=== PATIENT | male | born 1955 | race Caucasian/White ===

== ENCOUNTER 2016-06-26 15:14 | Emergency (ER) | payer OTHER ==
[2016-06-26 15:34] VITALS: BP 161/83; PULSE 82; RESP 18; TEMP 98.2
[2016-06-26] MEDS ORDERED: GELATIN SPONGE,ABSORB (SMALL) 1 EACH SPONGE TOPICAL STA (15:55)
--- NOTE | 2016-06-26 16:15 | ED ---
General Adult HPI - General Chief complaint: Wound/Laceration Stated complaint: Lac/Finger Time Seen by Provider: 06/26/16 15:51 Source: patient, RN notes reviewed Mode of arrival: ambulatory Limitations: no limitations - History of Present Illness Initial comments: Patient 60-year-old male who presents emergency room today with chief complaint of laceration to the left index finger that occurred approximately an hour ago. He does admit that he was at home using a utility knife when it broke sleeping causing a laceration to the posterior aspect of the left index. Proximal portion. Patient states tetanus is up-to-date. He does admit that he is on blood thinners. Patient denies any other complaints or symptoms. Patient denies any recent fever, chills, shortness of breath, chest pain, back pain, abdominal pain, nausea or vomiting, numbness or tingling, dysuria or hematuria, constipation or diarrhea, headaches or visual changes, or any other complaints. - Related Data Home Medications Medication Instructions Recorded Confirmed Atorvastatin [Lipitor] 20 mg PO DAILY 06/26/16 06/26/16 Clopidogrel [Plavix] 5 mg PO DAILY 06/26/16 06/26/16 Rivaroxaban [Xarelto] 5 mg PO DAILY 06/26/16 06/26/16 Previous Rx's Medication Instructions Recorded Cephalexin [Keflex] 500 mg PO Q12HR 7 Days 06/26/16 Allergies Allergy/AdvReac Type Severity Reaction Status Date / Time No Known Allergies Allergy Verified 06/26/16 15:35 Review of Systems ROS Statement: Those systems with pertinent positive or pertinent negative responses have been documented in the HPI. ROS Other: All systems not noted in ROS Statement are negative. Past Medical History Past Medical History: Atrial Fibrillation, Deep Vein Thrombosis (DVT) Additional Past Medical History / Comment(s): colorectal cancer, scarring pulmonary veins. History of Any Multi-Drug Resistant Organisms: None Reported Additional Past Surgical History / Comment(s): ablation, stents, heart cath, stent LAD Past Psychological History: No Psychological Hx Reported Smoking Status: Never smoker Past Alcohol Use History: None Reported, Occasional Past Drug Use History: None Reported General Exam - General Exam Comments Initial Comments: General: The patient is awake and alert, in no distress, and does not appear acutely ill. Neck: The neck is supple, there is no tenderness or JVD. Cardiovascular: There is a regular rate and rhythm. No murmur, rub or gallop is appreciated. Respiratory: Lungs are clear to auscultation, respirations are non-labored, breath sounds are equal. No wheezes, stridor, rales, or rhonchi. Musculoskeletal: Full range motion. Sensation intact. Pulses equal bilaterally 2+. Strength 5/5. Cap refill less than 2 seconds. Neurological: A&O x 3. CN II-XII intact, There are no obvious motor or sensory deficits. Coordination appears grossly intact. Speech is normal. Skin: Avulsion type laceration to the posterior aspect of the left second digit proximal. Mild venous oozing. Psychiatric: Normal mood and affect. Limitations: no limitations Course Vital Signs 06/26/16 15:27 Temperature 98.2 F Pulse Rate 82 Respiratory 18 Rate Blood Pressure 161/83 O2 Sat by Pulse 95 Oximetry Procedures - Procedures Initial comment: Patient's laceration cleaned here in the emergency room. Laceration site which piece of Gelfoam. Nonstick dressing placed over top. Medical Decision Making - Medical Decision Making Patient denies follow-up with orthopedic hand specialist. Will be placed on antibiotic prophylactic. Advised return for any other concerns. Disposition Clinical Impression: Laceration Disposition: HOME SELF-CARE Condition: Good Instructions: Laceration (ED) Additional Instructions: Please allow the Gelfoam to fall off on its own. Please change dressing twice daily. Please use antibiotic as prescribed. Please follow-up with family doctor/orthopedics in the next 2 days of symptoms have not improved. Please return to emergency room if the symptoms increase or worsen or for any other concerns. Prescriptions: Cephalexin [Keflex] 500 mg PO Q12HR 7 Days Time of Disposition: 16:07
== END 2016-06-26 16:26 | disposition home or self-care (01) ==
LOC: EC 15:14
DX: S61.211A Laceration without foreign body of left index finger without damage to nail, initial encounter (principal); I48.91 Unspecified atrial fibrillation; Z79.01 Long term (current) use of anticoagulants; Z79.02 Long term (current) use of antithrombotics/antiplatelets; Z79.899 Other long term (current) drug therapy; Z86.718 Personal history of other venous thrombosis and embolism; Z95.5 Presence of coronary angioplasty implant and graft; W26.0XXA Contact with knife, initial encounter; Y92.009 Unspecified place in unspecified non-institutional (private) residence as the place of occurrence of the external cause
CPT/HCPCS: 99282

== ENCOUNTER 2018-03-27 21:23 | Emergency (ER) | payer OTHER ==
[2018-03-27 21:40] VITALS: RESP 18
[2018-03-27 22:00] LABS: INR 1.1 (<1.2); Partial Thromboplastin Time 24.5 sec (22.0-30.0); Prothrombin Time 10.9 sec (9.0-12.0)
[2018-03-27 22:04] LABS: ALT 28 U/L (21-72); AST 31 U/L (17-59); Alcohol <10 mg/dL; Alkaline Phosphatase 81 U/L (38-126); Anion Gap 9 mmol/L; Blood Urea Nitrogen 24 mg/dL (9-20); Calcium 9.3 mg/dL (8.4-10.2); Carbon Dioxide 28 mmol/L (22-30); Chloride 101 mmol/L (98-107); Glucose 142 mg/dL (74-99); Potassium 3.3 mmol/L (3.5-5.1); Sodium 138 mmol/L (137-145); Total Bilirubin 0.4 mg/dL (0.2-1.3); Total Protein 7.1 g/dL (6.3-8.2)
[2018-03-27 22:08] LABS: HCT 43.4 % (39.0-53.0); MCH 29.8 pg (25.0-35.0); MCHC 32.4 g/dL (31.0-37.0); Mean Platelet Volume 7.4; Platelet Count 235 k/uL (150-450); RBC 4.71 m/uL (4.30-5.90); RDW 13.5 % (11.5-15.5); WBC 8.4 k/uL (3.8-10.6)
--- NOTE | 2018-03-27 22:11 | XR ---
EXAMINATION TYPE: XR cervical spine 1V DATE OF EXAM: 03/27/2018 COMPARISON: NONE HISTORY: Neck pain TECHNIQUE: 2 views FINDINGS: 2 lateral views were obtained. There is mild straightening of the cervical spine. Posterior elements are intact. There is degenerative disc space From C4 to C7. I see no fracture. Cervical basilar relationships is normal. IMPRESSION: Spondylotic changes in the cervical spine. No fracture.
--- NOTE | 2018-03-27 22:14 | XR ---
EXAMINATION TYPE: XR chest 1V portable DATE OF EXAM: 03/27/2018 COMPARISON: NONE HISTORY: Pain TECHNIQUE: Single frontal view of the chest is obtained. FINDINGS: Heart and mediastinum are normal. Lungs are clear. Diaphragm is normal. There is no sign o f pleural effusion or pneumothorax. There are chest leads. IMPRESSION: Normal chest
[2018-03-27 22:15] LABS: Creatine Kinase 242 U/L (55-170)
--- NOTE | 2018-03-27 22:15 | XR ---
EXAMINATION TYPE: XR shoulder complete RT DATE OF EXAM: 03/27/2018 COMPARISON: NONE HISTORY: Pain TECHNIQUE: 3 views FINDINGS: I see no fracture nor dislocation. Glenohumeral joint is anatomic. There is spurring at the AC joint. Right upper ribs appear intact. IMPRESSION: Negative right shoulder exam. Previous right shoulder surgery.
--- NOTE | 2018-03-27 22:16 | XR ---
EXAMINATION TYPE: XR pelvis AP view DATE OF EXAM: 03/27/2018 COMPARISON: NONE HISTORY: Pain TECHNIQUE: Single view FINDINGS: Pelvic ring is intact. Proximal femurs and hip joints are intact. Sacroiliac joints appear normal. IMPRESSION: Normal pelvis
--- NOTE | 2018-03-27 22:18 | XR ---
EXAMINATION TYPE: XR tibia fibula RT DATE OF EXAM: 03/27/2018 COMPARISON: NONE HISTORY: Knee pain TECHNIQUE: 4 views FINDINGS: The tibia and fibula appear intact. I see no fracture nor dislocation. There is an Achilles calcaneal spur. Knee joint appears intact. There is mild spurring on the superior patella. IMPRESSION: No acute abnormality of the right tibia and fibula.
--- NOTE | 2018-03-27 22:19 | XR ---
EXAMINATION TYPE: XR femur LT DATE OF EXAM: 03/27/2018 COMPARISON: NONE HISTORY: Leg pain TECHNIQUE: 4 views FINDINGS: I see no fracture nor dislocation. Hip joint and knee joint appear intact. There are no pat hologic calcifications. IMPRESSION: Negative left femur exam.
[2018-03-27 22:26] LABS: Band Neutrophils % 1 %; Basophils # (M) 0.08 k/uL (0-0.2); Eosinophils # (M) 0.42 k/uL (0-0.7); Lymphocytes # (M) 3.02 k/uL (1.0-4.8); Monocytes # (M) 0.17 k/uL (0-1.0); Neutrophils % (M) 55 %; Nucleated Red Blood Cells 0 /100 WBC (0-0); Total Cells Counted 100
[2018-03-27 22:28] LABS: Creatine Kinase MB 2.9 ng/mL (0.0-2.4); Troponin I <0.012 ng/mL (0.000-0.034)
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
[2018-03-27 23:13] LABS: Amphetamine Screen,Urine Not Detected (NotDetected); Barbiturate Screen,Urine Not Detected (NotDetected); Benzodiazepines Screen,Urine Not Detected (NotDetected); Cocaine Screen,Urine Not Detected (NotDetected); Methadone Screen, Urine Not Detected (NotDetected); Opiate Screen,Urine Detected (NotDetected); Oxycodone Screen, Urine Not Detected (NotDetected); Phencyclidine Screen,Urine Not Detected (NotDetected); Tricyclic Antidepressant,Urine Not Detected (NotDetected); Urn Cannabinoid Scrn Not Detected (NotDetected)
[2018-03-27] MEDS ORDERED: HYDROmorphone 1 MG/ML 1 ML SYRINGE IVP STA (23:14)
[2018-03-27 23:18] LABS: Appearance,Urine Clear (Clear); Bilirubin,Urine Negative (Negative); Blood,Urine Negative (Negative); Color,Urine Light Yellow; Glucose,Urine (UA) Negative (Negative); Ketones,Urine Negative (Negative); Leukocyte Esterase,Urine Negative (Negative); Nitrite,Urine Negative (Negative); PH, Urine 5.5 (5.0-8.0); Protein,Urine Negative (Negative); Specific Gravity,Urine 1.017 (1.001-1.035); Urobilinogen,Urine <2.0 mg/dL (<2.0)
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
[2018-03-27] MEDS ORDERED: LIDOCAINE 1% INJ 10MG/ML (20 ML MDV) SQ ONE (23:48)
[2018-03-28 01:02] VITALS: BP 129/82; PULSE 82; TEMP 98.4
== END 2018-03-28 01:15 | disposition home or self-care (01) ==
LOC: EC 21:23
DX: S01.112A Laceration without foreign body of left eyelid and periocular area, initial encounter (principal); S70.12XA Contusion of left thigh, initial encounter; S80.812A Abrasion, left lower leg, initial encounter; S80.811A Abrasion, right lower leg, initial encounter; M25.511 Pain in right shoulder; I48.91 Unspecified atrial fibrillation; Z86.718 Personal history of other venous thrombosis and embolism; Z85.89 Personal history of malignant neoplasm of other organs and systems; Z79.01 Long term (current) use of anticoagulants; Z79.899 Other long term (current) drug therapy; Z88.1 Allergy status to other antibiotic agents; Z95.5 Presence of coronary angioplasty implant and graft; V47.5XXA Car driver injured in collision with fixed or stationary object in traffic accident, initial encounter; Y92.410 Unspecified street and highway as the place of occurrence of the external cause
CPT/HCPCS: 36415; 93005; 86900; 86901; 80053; 82550; 82553; 84484; 85025; 85610; 85730; 86850; 81003; 80306; 80320; 72020; 72170; 73552; 73030; 73590; 71045; 70450; 99285; 12011; 96374; J2001; J1170

== ENCOUNTER 2018-06-29 15:47 | Observation (INO) | payer OTHER ==
[2018-06-29] MEDS ORDERED: ceFAZolin 1,000 MG in DEXTROSE/WATER 1 50ML.BAG IVPB STA ×2 (16:13→22:12)
[2018-06-29] MEDS ORDERED: DIPH,PERTUS(ACELL)TETVAC-LF 0.5 ML VIAL IM ONE (16:13)
[2018-06-29] MEDS ORDERED: MORPHINE SULFATE 4 MG/ML SYRINGE IVP STA ×2 (16:18→16:52)
[2018-06-29 16:24] LABS: Basophils # (A) 0.1 k/uL (0-0.2); Basophils % (A) 1 %; Eosinophils # (A) 0.3 k/uL (0-0.7); Eosinophils % (A) 3 %; HCT 47.9 % (39.0-53.0); HGB 15.5 gm/dL (13.0-17.5); Lymphocytes # (A) 3.1 k/uL (1.0-4.8); Lymphocytes % (A) 31 %; MCH 27.5 pg (25.0-35.0); MCHC 32.3 g/dL (31.0-37.0); MCV 85.1 fL (80.0-100.0); Mean Platelet Volume 5.9; Monocytes # (A) 0.8 k/uL (0-1.0); Monocytes % (A) 8 %; Neutrophils # (A) 5.6 k/uL (1.3-7.7); Neutrophils % (A) 56 %; Platelet Count 294 k/uL (150-450); RBC 5.63 m/uL (4.30-5.90); RDW 14.5 % (11.5-15.5)
--- NOTE | 2018-06-29 16:29 | ED ---
General Adult HPI - General Chief complaint: Trauma Stated complaint: leg lac Time Seen by Provider: 06/29/18 16:00 Source: patient, RN notes reviewed, old records reviewed Mode of arrival: wheelchair Limitations: no limitations - History of Present Illness Initial comments: 62-year-old male presents for evaluation of right lower extremity injury. Patient was using a circular saw cutting a countertop, did lose control of the saw and it struck his right anterior myers and calf. Patient immediately applied pressure and presented to the hospital for evaluation. He's having some numbness in his foot. His been able to ambulate. He states a significant amount of blood was lost on scene. He is currently on Plavix and Xarelto. No other injury reported - Related Data Home Medications Medication Instructions Recorded Confirmed Chlorthalidone [Hygroton] 25 mg PO DAILY 03/27/18 06/29/18 Cholecalciferol [Vitamin D3] 1,000 unit PO DAILY 03/27/18 06/29/18 Clopidogrel [Plavix] 75 mg PO DAILY 03/27/18 06/29/18 Ezetimibe [Zetia] 10 mg PO DAILY 03/27/18 06/29/18 Glucosamine Sulfate 1,500 mg PO QID 03/27/18 06/29/18 Omeprazole 20 mg PO DAILY 03/27/18 06/29/18 Potassium 99 mg PO BID 03/27/18 06/29/18 Rivaroxaban [Xarelto] 20 mg PO DAILY 03/27/18 06/29/18 Turmeric Root Extract [Turmeric] 500 mg PO DAILY 03/27/18 06/29/18 Vit C/E/Zn/Coppr/Lutein/Zeaxan 1 cap PO BID 03/27/18 06/29/18 [Preservision Areds 2 Softgel] Vitamin E 1,000 unit PO BID 03/27/18 06/29/18 Metoprolol Tartrate [Lopressor] 25 mg PO DAILY 06/29/18 06/29/18 Allergies Allergy/AdvReac Type Severity Reaction Status Date / Time demeclocycline Allergy Unknown Verified 06/29/18 16:45 [From Declomycin] Review of Systems ROS Statement: Those systems with pertinent positive or pertinent negative responses have been documented in the HPI. ROS Other: All systems not noted in ROS Statement are negative. Past Medical History Past Medical History: Atrial Fibrillation, Deep Vein Thrombosis (DVT) Additional Past Medical History / Comment(s): colorectal cancer, scarring pulmonary veins. History of Any Multi-Drug Resistant Organisms: None Reported Additional Past Surgical History / Comment(s): ablation, stents, heart cath, stent LAD Past Psychological History: No Psychological Hx Reported Smoking Status: Never smoker Past Alcohol Use History: None Reported, Occasional Past Drug Use History: None Reported General Exam Limitations: no limitations General appearance: alert, in no apparent distress Head exam: Present: atraumatic, normocephalic Eye exam: Present: normal appearance, PERRL, EOMI ENT exam: Present: normal exam Neck exam: Present: normal inspection. Absent: tenderness, meningismus Respiratory exam: Present: normal lung sounds bilaterally. Absent: respiratory distress Cardiovascular Exam: Present: normal rhythm, tachycardia GI/Abdominal exam: Present: soft. Absent: distended, tenderness, guarding Extremities exam: Present: other (Bilateral extremity, significant soft tissue injury, anterior medial lower leg. Muscle bed injury, significant hemorrhage, no arterial pulsatile bleed. approximately 15 cm, irregular) Course Vital Signs 06/29/18 06/29/18 15:52 16:17 Temperature 98 F Pulse Rate 122 H 122 H Respiratory 20 16 Rate Blood Pressure 195/91 154/105 O2 Sat by Pulse 97 97 Oximetry - Reevaluation(s) Reevaluation #1: 06/29/18 16:10 case discussed with trauma surgery, Dr. Hargrove, recommend orthopedic surgery evaluation. 06/29/18 16:03 Wound evaluated, copiously irrigated with normal saline. Patient is started on IV antibiotics, tetanus updated. Medical Decision Making - Medical Decision Making 62-year-old male with injury to the left lower leg. Significant soft tissue injury. Also involvement, significant hemorrhage with no pulsatile bleeding. Patient has normal posterior tibial pulse, normal cap refill, DP pulse on either lower extremity, this may be patient's baseline. X-rays obtained, shows soft tissue injury, no bony abnormality. Patient's tetanus is updated, given IV antibiotics. Case discussed with Dr. Cameron, will take the patient for washout and closure. - Lab Data Result diagrams: 06/29/18 16:08 06/29/18 16:08 Lab Results 06/29/18 06/29/18 06/29/18 Range/Units 16:08 16:08 16:08 WBC 10.0 (3.8-10.6) k/uL RBC 5.63 (4.30-5.90) m/uL Hgb 15.5 (13.0-17.5) gm/dL Hct 47.9 (39.0-53.0) % MCV 85.1 (80.0-100.0) fL MCH 27.5 (25.0-35.0) pg MCHC 32.3 (31.0-37.0) g/dL RDW 14.5 (11.5-15.5) % Plt Count 294 (150-450) k/uL Neutrophils % 56 % Lymphocytes % 31 % Monocytes % 8 % Eosinophils % 3 % Basophils % 1 % Neutrophils # 5.6 (1.3-7.7) k/uL Lymphocytes # 3.1 (1.0-4.8) k/uL Monocytes # 0.8 (0-1.0) k/uL Eosinophils # 0.3 (0-0.7) k/uL Basophils # 0.1 (0-0.2) k/uL PT 10.4 (9.0-12.0) sec INR 1.0 (<1.2) APTT 22.2 (22.0-30.0) sec Sodium 140 (137-145) mmol/L Potassium 3.2 L (3.5-5.1) mmol/L Chloride 100 (98-107) mmol/L Carbon Dioxide 27 (22-30) mmol/L Anion Gap 13 mmol/L BUN 23 H (9-20) mg/dL Creatinine 1.43 H (0.66-1.25) mg/dL Est GFR (CKD-EPI)AfAm 60 (>60 ml/min/1.73 sqM) Est GFR (CKD-EPI)NonAf 52 (>60 ml/min/1.73 sqM) Glucose 105 H (74-99) mg/dL Calcium 9.5 (8.4-10.2) mg/dL Total Bilirubin 0.8 (0.2-1.3) mg/dL AST 26 (17-59) U/L ALT 29 (21-72) U/L Alkaline Phosphatase 92 (38-126) U/L Total Protein 7.7 (6.3-8.2) g/dL Albumin 4.6 (3.5-5.0) g/dL Serum Alcohol <10 mg/dL Critical Care Time Critical Care Time: Yes Total Critical Care Time: 35 Disposition Clinical Impression: Laceration of muscle, Laceration of calf Disposition: ADMITTED IP TO THIS HOSP Condition: Stable Is patient prescribed a controlled substance at d/c from ED?: No Referrals: Hernan Cheatham MD [Primary Care Provider] - 1-2 days Time of Disposition: 16:56 Decision to Admit Reason: Admit from EC Decision Date: 06/29/18 Decision Time: 16:56
[2018-06-29 16:34] LABS: ALT 29 U/L (21-72); AST 26 U/L (17-59); Albumin 4.6 g/dL (3.5-5.0); Alcohol <10 mg/dL; Alkaline Phosphatase 92 U/L (38-126); Anion Gap 13 mmol/L; Blood Urea Nitrogen 23 mg/dL (9-20); Calcium 9.5 mg/dL (8.4-10.2); Carbon Dioxide 27 mmol/L (22-30); Chloride 100 mmol/L (98-107); Glucose 105 mg/dL (74-99); Potassium 3.2 mmol/L (3.5-5.1); Sodium 140 mmol/L (137-145); Total Bilirubin 0.8 mg/dL (0.2-1.3); Total Protein 7.7 g/dL (6.3-8.2)
[2018-06-29 16:40] LABS: Partial Thromboplastin Time 22.2 sec (22.0-30.0); Prothrombin Time 10.4 sec (9.0-12.0)
--- NOTE | 2018-06-29 16:49 | XR ---
EXAMINATION TYPE: XR tibia fibula RT DATE OF EXAM: 06/29/2018 COMPARISON: 03/27/2018 HISTORY: Laceration TECHNIQUE: 2 views FINDINGS: There are areas bandages obscuring the proximal tibia. I see no fracture nor dislocation. T here is some soft tissue deformity anteriorly. IMPRESSION: No fracture. No foreign body seen. Soft tissue swelling and probable laceration deformity of the medial and anterior tibia.
[2018-06-29] MEDS ORDERED: SODIUM CHLORIDE 0.9% 1,000 ML IV SCH (17:00)
[2018-06-29] MEDS ORDERED: NALOXONE 0.4 MG/ML 1 ML VIAL IV PRN (17:08)
[2018-06-29] MEDS: POTASSIUM CHLORIDE 10 MEQ in WATER FOR INJECTION 1 100ML.BAG IVPB SCH ×6 (17:09→21:45)
[2018-06-29] MEDS ORDERED: SODIUM CHLORIDE 0.9% 500 ML 500 ML IV ONE (17:15)
[2018-06-29] MEDS ORDERED: ONDANSETRON 4 MG/2 ML VIAL IVP STA (17:15)
[2018-06-29] MEDS ORDERED: SODIUM CHLORIDE 0.9% 1,000 ML IV ONE ×2 (17:45)
--- NOTE | 2018-06-29 18:19 | P.HPOR ---
History of Present Illness H&P Date: 06/29/18 Chief Complaint: Right leg laceration Mr. Echevarria is a pleasant 62-year-old male who sustained an injury to his right leg earlier today while working with a circular saw at home. He states he was cutting a countertop with the blade guard retracted. The saw slipped and cut his right leg. He was brought to the emergency department at [facility] and the orthopedics service was consulted. He denies previous history of injury to the leg but did have recent arthroscopic surgery on the right knee the past few weeks. He localizes the pain to the right leg and denies other associated injuries. He admits to some tingling sensations on the medial aspect of the foot and leg distal to the wound. His past medical history is significant for colon cancer, DVT and A. fib for which he takes Xarelto and Plavix. He denies history of diabetes or smoking. He normally endplates without the use of assistive devices. Past Medical History Past Medical History: Atrial Fibrillation, Deep Vein Thrombosis (DVT) Additional Past Medical History / Comment(s): colorectal cancer, scarring pulmonary veins. History of Any Multi-Drug Resistant Organisms: None Reported Additional Past Surgical History / Comment(s): ablation, stents, heart cath, stent LAD Past Psychological History: No Psychological Hx Reported Smoking Status: Never smoker Past Alcohol Use History: None Reported, Occasional Past Drug Use History: None Reported Medications and Allergies Home Medications Medication Instructions Recorded Confirmed Type Chlorthalidone [Hygroton] 25 mg PO DAILY 03/27/18 06/29/18 History Cholecalciferol [Vitamin D3] 1,000 unit PO DAILY 03/27/18 06/29/18 History Clopidogrel [Plavix] 75 mg PO DAILY 03/27/18 06/29/18 History Ezetimibe [Zetia] 10 mg PO DAILY 03/27/18 06/29/18 History Glucosamine Sulfate 1,500 mg PO QID 03/27/18 06/29/18 History Omeprazole 20 mg PO DAILY 03/27/18 06/29/18 History Potassium 99 mg PO BID 03/27/18 06/29/18 History Rivaroxaban [Xarelto] 20 mg PO DAILY 03/27/18 06/29/18 History Turmeric Root Extract [Turmeric] 500 mg PO DAILY 03/27/18 06/29/18 History Vit C/E/Zn/Coppr/Lutein/Zeaxan 1 cap PO BID 03/27/18 06/29/18 History [Preservision Areds 2 Softgel] Vitamin E 1,000 unit PO BID 03/27/18 06/29/18 History Metoprolol Tartrate [Lopressor] 25 mg PO DAILY 06/29/18 06/29/18 History Allergies Allergy/AdvReac Type Severity Reaction Status Date / Time demeclocycline Allergy Unknown Verified 06/29/18 16:45 [From Declomycin] Physical Examination Right leg: There is a large curved traumatic laceration on the anteromedial aspect of the proximal third of right leg. This measures approximately 20 cm in overall length and 8 cm in width. The wound edges are clean and there is no significant maceration to the skin edges. No active arterial bleeding is seen but steady venous oozing is present. There is visible laceration to the medial head of the gastroc muscle belly. No gross contamination or foreign debris is appreciated; however, the wound appears fairly deep and the full extent is not able to be adequately visualized. Light touch sensation is intact circumferentially around the leg however he reports mild tingling and paresthesias on the medial aspect of the leg and foot distal to the wound. He has intact gross motor function with active dorsiflexion, plantarflexion, inversion and eversion of the ankle as well as EHL and FHL function. The foot is slightly cool but similar to the contralateral foot. There is good capillary refill. The tibialis posterior pulse is strong and 3+. The dorsalis pedis is very faintly palpable on both feet. Results - Labs Labs: Abnormal Lab Results - Last 24 Hours (Table) 06/29/18 Range/Units 16:08 Potassium 3.2 L (3.5-5.1) mmol/L BUN 23 H (9-20) mg/dL Creatinine 1.43 H (0.66-1.25) mg/dL Glucose 105 H (74-99) mg/dL H & H 06/29/18 Range/Units 16:08 Hgb 15.5 (13.0-17.5) gm/dL Hct 47.9 (39.0-53.0) % Coagulation 06/29/18 Range/Units 16:08 INR 1.0 (<1.2) Result Diagrams: 06/29/18 16:08 06/29/18 16:08 Assessment and Plan Assessment: Traumatic open wound of the right leg with muscle injury secondary to contact with a power saw (1) Contact with powered saw as cause of accidental injury Current Visit: Yes Status: Acute Code(s): W31.2XXA - CONTACT W POWERED [employer]ACHINES, INIT SNOMED Code(s): 298515368 (2) Traumatic open wound of right lower leg Current Visit: Yes Status: Acute Code(s): S81.801A - UNSPECIFIED OPEN WOUND , RIGHT LOWER LEG, INITIAL ENCOUNTER SNOMED Code(s): 408987844 Plan: I discussed the clinical findings with Mr. Ortiz and his . Based on the mechanism of injury and the extent of the wound, I recommended formal surgical exploration of the right leg wound with irrigation and debridement and wound closure. Risks and benefits were discussed, including (but not limited to) the risks of infection, bleeding, injury to tendons or neurovascular structures, hematoma, compartment syndrome and possible need for additional surgery. Questions were invited and answered. The patient expressed understanding and wished to proceed with surgery. The wound was wrapped with ABDs, Kerlix and Coban. Antibiotics have been administered. The patient will be kept NPO and we will proceed with surgical debridement.
[2018-06-29] MEDS ORDERED: LIDOCAINE 1% INJ 10MG/ML (20 ML MDV) ONE (19:07)
[2018-06-29] MEDS ORDERED: MIDAZOLAM 2 MG/2 ML VIAL ONE (19:07)
[2018-06-29] MEDS ORDERED: PROPOFOL 10 MG/ML 20 ML VIAL IV ONE (19:07)
[2018-06-29] MEDS ORDERED: SUCCINYLCHOLINE CHLORIDE 100 MG/5 ML SYR IV ONE (19:07)
[2018-06-29] MEDS ORDERED: fentaNYL (PF) 50 MCG/ML 2 ML AMP ONE (19:07)
[2018-06-29] MEDS ORDERED: SODIUM CHLORIDE 0.9% 50 ML with ceFAZolin 1,000 MG IV ONE ×2 (19:35)
[2018-06-29] MEDS ORDERED: LACTATED RINGERS 1,000 ML IV ONE (19:56)
[2018-06-29] MEDS ORDERED: BUPIVACAIN-EPI 0.5%-1:200,000 30 ML VIAL SQ ONE (20:28)
[2018-06-29] MEDS: MEPERIDINE 50 MG/ML SYRINGE IVP ONE ×2 (21:18→21:28)
[2018-06-29] MEDS ORDERED: hydrALAZINE HCL 20 MG/ML 1 ML VIAL IVP ONE (21:39)
[2018-06-29 21:45] VITALS: RESP 16
--- NOTE | 2018-06-29 21:45 | P.OP ---
Date of Procedure: 06/29/18 Preoperative Diagnosis: Traumatic open wound of the right leg with muscle laceration secondary to contact with a power saw Postoperative Diagnosis: 1. Traumatic open wound of the right leg with muscle laceration secondary to contact with a power saw 2. Laceration of medial head of the gastrocnemius Procedure(s) Performed: 1. Exploration of traumatic right leg wound with irrigation and debridement 2. Repair of the medial head of the gastrocnemius 3. Closure of traumatic right leg wound, measuring 18 cm Anesthesia: KEON, local Surgeon: Alhaji Cameron Estimated Blood Loss (ml): 50 IV fluids (ml): 850 Pathology: none sent Condition: stable Disposition: PACU Indications for Procedure: Mr. Ortiz is a pleasant 62-year-old gentleman who sustained a traumatic wound to his right leg after accidental contact with a circular saw. He was evaluated in the emergency department; surgical debridement and wound closure were recommended. Risks and benefits were reviewed with the patient preoperatively. He expressed understanding and wished to proceed with surgery. The operative site was confirmed and marked. Consent forms were signed. Description of Procedure: The patient was brought to the operating suite by the anesthesia team and positioned supine on the operating table. General anesthesia was administered uneventfully. A tourniquet was placed on the right thigh but was not inflated. The right lower extremity was prepped and draped in standard, sterile fashion. A timeout was performed which confirmed the patient, the operative side, site, and procedures to be performed. All team members expressed agreement. The traumatic wound measured 15 cm x 5 cm. This was sharply extended proximally and distally. The wound was explored. There was no gross contamination with small amounts of foreign material were identified and removed. These appear to be fibers from the patient's pants. The medial head of the gastrocnemius muscle belly was completely transected. The soleus fascia was intact. Small arterial bleeders were identified within the muscle belly and were coagulated with electrocautery. The saphenous nerve was identified on the anterior aspect of the wound. The traumatic laceration ended just short of the nerve and no discrete structural injury to the nerve was seen. The wound was bluntly explored and clotted blood was evacuated from between the muscle bellies. The plantaris tendon was identified and found to be uninjured. The wound was copiously irrigated with 5 L of normal saline using gravity inflow and cystoscopy tubing. The surrounding soft tissues were mechanically debrided with a curette. Small fragments of loose, devascularized muscle fibers were sharply excised. There was a good layer of fascial tissue on the inferior aspect of both ends of the lacerated muscle. Interrupted 2-0 PDS sutures were used to repair and reapproximate of the lacerated gastrocnemius muscle belly. Excellent hemostasis was achieved and the tourniquet was never utilized. The traumatized skin edges were sharply resected to healthy tissue. Full-thickness skin flaps were elevated and mobilized to facilitate wound closure. The subcutaneous tissues were closed with interrupted 2-0 PDS . Interval 0-Prolene retention sutures were placed across the wound in a near-far, far-near fashion to disperse tension across the wound. The wound was then loosely closed with simple interrupted and horizontal mattress sutures of 2-0 and 3-0 Prolene. The retention sutures were removed. Edges were well approximated without undue tension. Marcaine with epinephrine was injected into the perioperative subcutaneous tissues for additional postoperative pain control and hemostasis. A soft, sterile dressing was applied. All sponge and needle counts were correct at the end of the case. The patient tolerated the procedure well. The patient was extubated uneventfully and taken to recovery in stable condition.
[2018-06-29] MEDS ORDERED: HYDROcodone/APAP 5-325MG 1 EACH TAB PO PRN (22:37)
[2018-06-29 22:43] VITALS: TEMP 97.6
[2018-06-29 22:46] VITALS: BMI 25.8
[2018-06-30 00:51] VITALS: BP 129/84; PULSE 90
== END 2018-06-30 00:30 | disposition home or self-care (01) ==
LOC: EC 15:47 → 4SSUR 17:12
PROVIDERS: ADMIT Orthopaedic Surgery; ATTEND Orthopaedic Surgery
DX: S86.821A Laceration of other muscle(s) and tendon(s) at lower leg level, right leg, initial encounter (principal); W31.2XXA Contact with powered woodworking and forming machines, initial encounter; I48.91 Unspecified atrial fibrillation; Z79.01 Long term (current) use of anticoagulants; Z79.899 Other long term (current) drug therapy; Z79.02 Long term (current) use of antithrombotics/antiplatelets; Y92.009 Unspecified place in unspecified non-institutional (private) residence as the place of occurrence of the external cause; Z85.048 Personal history of other malignant neoplasm of rectum, rectosigmoid junction, and anus
CPT/HCPCS: 96376; 96372; 96374; 96375; 99291; 36415; 86900; 86901; 80053; 84484; 85025; 85610; 85730; 86850; 80320; 73590; 90715; 13121; 13122 ×2; G0378; J2250; J2270; J0360; J2175; J2405; J2001; J3010; J3480; J0690; J0330; J2704

== ENCOUNTER 2018-10-18 21:57 | Inpatient (IN) | payer OTHER ==
[2018-10-18] MEDS ORDERED: SODIUM CHLORIDE 0.9% 1,000 ML IV STA (22:13)
[2018-10-18] MEDS ORDERED: ONDANSETRON 4 MG/2 ML VIAL IVP STA (22:36)
[2018-10-18] MEDS ORDERED: MORPHINE SULFATE 2 MG/ML SYRINGE IVP STA (22:36)
[2018-10-18 22:46] LABS: Anisocytosis Slight; Basophils % (A) 0 %; Eosinophils # (A) 0.2 k/uL (0-0.7); Eosinophils % (A) 2 %; HCT 45.3 % (39.0-53.0); HGB 14.5 gm/dL (13.0-17.5); Lymphocytes # (A) 1.3 k/uL (1.0-4.8); Lymphocytes % (A) 8 %; MCH 25.2 pg (25.0-35.0); MCV 78.8 fL (80.0-100.0); Mean Platelet Volume 6.7; Microcytosis Slight; Monocytes # (A) 0.7 k/uL (0-1.0); Monocytes % (A) 5 %; Neutrophils # (A) 12.6 k/uL (1.3-7.7); Neutrophils % (A) 85 %; Platelet Count 271 k/uL (150-450); RBC 5.76 m/uL (4.30-5.90); WBC 14.9 k/uL (3.8-10.6)
[2018-10-18 22:50] LABS: Albumin 4.5 g/dL (3.5-5.0); Calcium 9.3 mg/dL (8.4-10.2); Potassium 3.4 mmol/L (3.5-5.1); Total Protein 7.4 g/dL (6.3-8.2)
--- NOTE | 2018-10-18 22:57 | ED ---
General Adult HPI - General Source: patient, family, RN notes reviewed, old records reviewed Mode of arrival: ambulatory Limitations: no limitations <Brian Jarrell - Last Filed: 10/19/18 03:31> <Louis Ellsworth - Last Filed: 10/19/18 07:38> - General Chief complaint: Abdominal Pain Stated complaint: Abd Pain Time Seen by Provider: 10/18/18 22:13 - History of Present Illness Initial comments: 63-year-old male patient with past medical history of colorectal cancer in remission, cardiac catheterization with stent placement, atrial fibrillation, anticoagulated presents to ED with abdominal pain. Patient reports abdominal pain began approximate 4 hours ago. Patient describes it in the periumbilical region. Patient states he also had associated nausea and vomiting. States he has had approximately 5 episodes of emesis. Patient denies any diarrhea. Patient denies any fevers or chills. Patient denies any chest pain or shortness of breath. Systemic: Pt denies fatigue, fever/chills, rash. Pt denies weakness, night sweats, weight loss. Neuro: Pt denies headache, visual disturbances, syncope or pre-syncope. HEENT: Pt denies ocular discharge or irritation, otalgia, rhinorrhea, pharyngitis or notable lymphadenopathy. Cardiopulmonary: Pt denies chest pain, SOB, heart palpitations, dyspnea on exertion. : Pt denies dysuria, burning w/ urination, frequency/urgency. Denies new onset urinary or bowel incontinence. MSK: Pt denies myalgia, loss of strength or function in extremities. Neuro: Pt denies new onset weakness, paresthesias. (Brian Jarrell) - Related Data Home Medications Medication Instructions Recorded Confirmed Chlorthalidone [Hygroton] 25 mg PO DAILY 03/27/18 10/18/18 Cholecalciferol [Vitamin D3] 1,000 unit PO DAILY 03/27/18 10/18/18 Clopidogrel [Plavix] 75 mg PO DAILY 03/27/18 10/18/18 Ezetimibe [Zetia] 10 mg PO DAILY 03/27/18 10/18/18 Glucosamine Sulfate 3,000 mg PO BID 03/27/18 10/18/18 Potassium 99 mg PO BID 03/27/18 10/18/18 Rivaroxaban [Xarelto] 20 mg PO DAILY 03/27/18 10/18/18 Turmeric Root Extract [Turmeric] 2,000 mg PO DAILY 03/27/18 10/18/18 Vit C/E/Zn/Coppr/Lutein/Zeaxan 1 cap PO BID 03/27/18 10/18/18 [Preservision Areds 2 Softgel] Vitamin E 1,000 unit PO BID 03/27/18 10/18/18 Metoprolol Tartrate [Lopressor] 25 mg PO DAILY 06/29/18 10/18/18 Sildenafil [Revatio] 20 mg PO DAILY 10/18/18 10/18/18 Tadalafil [Cialis] 5 mg PO DAILY 10/18/18 10/18/18 Allergies Allergy/AdvReac Type Severity Reaction Status Date / Time demeclocycline Allergy Unknown Verified 10/18/18 22:44 [From Declomycin] Review of Systems ROS Other: All systems not noted in ROS Statement are negative. <Brian Jarrell - Last Filed: 10/19/18 03:31> ROS Other: All systems not noted in ROS Statement are negative. <Louis Ellsworth - Last Filed: 10/19/18 07:38> ROS Statement: Those systems with pertinent positive or pertinent negative responses have been documented in the HPI. Past Medical History Past Medical History: Atrial Fibrillation, Deep Vein Thrombosis (DVT) Additional Past Medical History / Comment(s): colorectal cancer, scarring pulmonary veins. History of Any Multi-Drug Resistant Organisms: None Reported Additional Past Surgical History / Comment(s): ablation, stents, heart cath, stent LAD Past Anesthesia/Blood Transfusion Reactions: No Reported Reaction Past Psychological History: No Psychological Hx Reported Smoking Status: Never smoker Past Alcohol Use History: None Reported, Occasional Past Drug Use History: None Reported <Brian Jarrell - Last Filed: 10/19/18 03:31> General Exam Limitations: no limitations <Brian Jarrell - Last Filed: 10/19/18 03:31> - General Exam Comments Initial Comments: Constitutional: NAD, AOX3, Pt has pleasant affect. HEENT: NC/AT, trachea midline, neck supple, no lymphadenopathy. Posterior phar ynx non erythematous, without exudates. External ears appear normal, without discharge. Mucous membranes moist. Eyes PERRLA, EOM intact. There is no scleral icterus. No pallor noted. Cardiopulmonary: RRR, no murmurs, rubs or gallops, no JVD noted. Lungs CTAB in anterior and posterior acevedo. No peripheral edema. Abdominal exam: Abdomen soft and non-distended. Abdomen moderately tender to palpation in periumbilical region. No guarding no rigidity. Bowel sounds active in LLQ. No hepatosplenomegaly. No ecchymosis Neuro: CN II-XII grossly intact. No nuchal rigidity. No raccon eyes, no whitfield sign, no hemotympanum. No cervical spinal tenderness. MSK: No posterior calf tenderness bilaterally, homans sign negative bilaterally. Posterior tibialis and radial pulse +2 bilaterally. Sensation intact in upper and lower extremities. Full active ROM in upper and lower extremities, 5/5 stregnth. (Brian Jarrell) Course <Louis Ellsworth - Last Filed: 10/19/18 07:38> Vital Signs 10/18/18 10/19/18 10/19/18 22:08 00:36 01:40 Temperature 98.3 F 97.8 F Pulse Rate 91 76 144 H Respiratory 20 18 18 Rate Blood Pressure 146/99 146/90 115/91 O2 Sat by Pulse 99 96 93 L Oximetry 10/19/18 10/19/18 10/19/18 02:00 02:40 03:00 Temperature Pulse Rate 151 H 131 H 122 H Respiratory 19 20 18 Rate Blood Pressure 131/95 126/87 132/86 O2 Sat by Pulse 93 L 99 99 Oximetry 10/19/18 10/19/18 10/19/18 03:20 04:00 04:20 Temperature Pulse Rate 120 H 118 H 116 H Respiratory 19 18 18 Rate Blood Pressure 125/96 135/85 120/79 O2 Sat by Pulse 98 96 97 Oximetry 10/19/18 10/19/18 10/19/18 04:40 05:00 05:40 Temperature Pulse Rate 126 H 131 H 115 H Respiratory 19 18 17 Rate Blood Pressure 121/92 118/88 114/95 O2 Sat by Pulse 97 96 Oximetry 10/19/18 06:48 Temperature 98.2 F Pulse Rate 115 H Respiratory 18 Rate Blood Pressure 126/87 O2 Sat by Pulse 97 Oximetry - Reevaluation(s) Reevaluation #1: 10/19/18 07:34 The patient was endorsed me by Dr. Conteh at shift change pending evaluation by Dr. Giles. Patient was seen by Dr. Giles and evaluated. A Meyer catheter was placed with decompression of the bladder. No further workup was indicated this time patient be discharged and remove his catheter in 3 days and follow up with Dr. Giles the following day (Louis Ellsworth) Medical Decision Making - Lab Data Result diagrams: 10/18/18 22:30 10/18/18 22:30 - EKG Data -: EKG Interpreted by Me (and Dr. Ramirez) <Brian Jarrell - Last Filed: 10/19/18 03:31> - Lab Data Result diagrams: 10/18/18 22:30 10/18/18 22:30 <Louis Ellsworth - Last Filed: 10/19/18 07:38> - Medical Decision Making 63-year-old male patient with past medical history of colorectal cancer in remission, cardiac catheterization with stent placement, atrial fibrillation, anticoagulated presents to ED with abdominal pain. Patient reports abdominal pain began approximate 4 hours ago. Patient describes it in the periumbilical region. Patient states he also had associated nausea and vomiting. States he has had approximately 5 episodes of emesis. Patient denies any diarrhea. Patient denies any fevers or chills. Patient denies any chest pain or shortness of breath. Patient vital signs stable, afebrile. Physical exam displayed: Abdomen moderately tender to palpation in periumbilical region. No guarding no rigidity. Investigations revealed mild leukocytosis of 14.9. CMP revealed mild Cr around baseline, mildly elevated glucose of 144. UA negative. CT and pelvis displayed high-grade small bowel obstruction, transition point at the right lower quadrant small bowel anastomoses, no perforation. NG tube placed, patient started on IV fluids. Patient began on prophylactic antibiotics. Patient will be admitted with surgical consult. While in the ER hold patient began to develop mild tachycardia. Patient has a history of atrial fibrillation. EKG did reveal atrial fibrillation with rapid ventricular response ventricular rate of 136. Patient continues to not endorse any chest pain or shortness of breath. Patient heart rate approximately 110-120 after fluid bolus. Pt is on home betablocker and anticoagulant. At this time further rate control will be held. Case discussed in depth with Dr. Ramirez. (Brian Jarrell) - Lab Data Lab Results 10/18/18 10/18/18 10/18/18 Range/Units 22:30 22:30 22:30 WBC 14.9 H (3.8-10.6) k/uL RBC 5.76 (4.30-5.90) m/uL Hgb 14.5 (13.0-17.5) gm/dL Hct 45.3 (39.0-53.0) % MCV 78.8 L (80.0-100.0) fL MCH 25.2 (25.0-35.0) pg MCHC 32.0 (31.0-37.0) g/dL RDW 17.0 H (11.5-15.5) % Plt Count 271 (150-450) k/uL Neutrophils % 85 % Lymphocytes % 8 % Monocytes % 5 % Eosinophils % 2 % Basophils % 0 % Neutrophils # 12.6 H (1.3-7.7) k/uL Lymphocytes # 1.3 (1.0-4.8) k/uL Monocytes # 0.7 (0-1.0) k/uL Eosinophils # 0.2 (0-0.7) k/uL Basophils # 0.0 (0-0.2) k/uL Anisocytosis Slight Microcytosis Slight Sodium 137 (137-145) mmol/L Potassium 3.4 L (3.5-5.1) mmol/L Chloride 99 (98-107) mmol/L Carbon Dioxide 29 (22-30) mmol/L Anion Gap 9 mmol/L BUN 25 H (9-20) mg/dL Creatinine 1.30 H (0.66-1.25) mg/dL Est GFR (CKD-EPI)AfAm 67 (>60 ml/min/1.73 sqM) Est GFR (CKD-EPI)NonAf 58 (>60 ml/min/1.73 sqM) Glucose 144 H (74-99) mg/dL Plasma Lactic Acid [place] 1.7 (0.7-2.0) mmol/L Calcium 9.3 (8.4-10.2) mg/dL Total Bilirubin 1.0 (0.2-1.3) mg/dL AST 23 (17-59) U/L ALT 30 (21-72) U/L Alkaline Phosphatase 106 (38-126) U/L Troponin I (0.000-0.034) ng/mL Total Protein 7.4 (6.3-8.2) g/dL Albumin 4.5 (3.5-5.0) g/dL Lipase 311 H (23-300) U/L Urine Color Urine Appearance (Clear) Urine pH (5.0-8.0) Ur Specific [place] (1.001-1.035) Urine Protein (Negative) Urine Glucose (UA) (Negative) Urine Ketones (Negative) Urine Blood (Negative) Urine Nitrite (Negative) Urine Bilirubin (Negative) Urine Urobilinogen (<2.0) mg/dL Ur Leukocyte Esterase (Negative) 10/18/18 10/18/18 Range/Units 22:30 23:30 WBC (3.8-10.6) k/uL RBC (4.30-5.90) m/uL Hgb (13.0-17.5) gm/dL Hct (39.0-53.0) % MCV (80.0-100.0) fL MCH (25.0-35.0) pg MCHC (31.0-37.0) g/dL RDW (11.5-15.5) % Plt Count (150-450) k/uL Neutrophils % % Lymphocytes % % Monocytes % % Eosinophils % % Basophils % % Neutrophils # (1.3-7.7) k/uL Lymphocytes # (1.0-4.8) k/uL Monocytes # (0-1.0) k/uL Eosinophils # (0-0.7) k/uL Basophils # (0-0.2) k/uL Anisocytosis Microcytosis Sodium (137-145) mmol/L Potassium (3.5-5.1) mmol/L Chloride (98-107) mmol/L Carbon Dioxide (22-30) mmol/L Anion Gap mmol/L BUN (9-20) mg/dL Creatinine (0.66-1.25) mg/dL Est GFR (CKD-EPI)AfAm (>60 ml/min/1.73 sqM) Est GFR (CKD-EPI)NonAf (>60 ml/min/1.73 sqM) Glucose (74-99) mg/dL Plasma Lactic Acid [place] (0.7-2.0) mmol/L Calcium (8.4-10.2) mg/dL Total Bilirubin (0.2-1.3) mg/dL AST (17-59) U/L ALT (21-72) U/L Alkaline Phosphatase (38-126) U/L Troponin I <0.012 (0.000-0.034) ng/mL Total Protein (6.3-8.2) g/dL Albumin (3.5-5.0) g/dL Lipase (23-300) U/L Urine Color Yellow Urine Appearance Clear (Clear) Urine pH 6.0 (5.0-8.0) Ur Specific [place] 1.038 H (1.001-1.035) Urine Protein Trace H (Negative) Urine Glucose (UA) Negative (Negative) Urine Ketones Negative (Negative) Urine Blood Negative (Negative) Urine Nitrite Negative (Negative) Urine Bilirubin Negative (Negative) Urine Urobilinogen <2.0 (<2.0) mg/dL Ur Leukocyte Esterase Negative (Negative) - EKG Data EKG Comments: Ventricular rate 136, serous 86, QT/QTc 328/493. Agent fibrillation with rapid response, abnormal EKG. No concern for acute ischemia. (Brian Jarrell) Disposition Is patient prescribed a controlled substance at d/c from ED?: No <Brian Jarrell - Last Filed: 10/19/18 03:31> Is patient prescribed a controlled substance at d/c from ED?: No <Louis Ellsworth - Last Filed: 10/19/18 07:38> Clinical Impression: Acute urinary retention, Bladder outlet obstruction, Meyer catheter in place Disposition: HOME SELF-CARE Condition: Good
[2018-10-18 23:35] LABS: Appearance,Urine Clear (Clear); Bilirubin,Urine Negative (Negative); Blood,Urine Negative (Negative); Color,Urine Yellow; Glucose,Urine (UA) Negative (Negative); Ketones,Urine Negative (Negative); Leukocyte Esterase,Urine Negative (Negative); Nitrite,Urine Negative (Negative); Protein,Urine Trace (Negative); Specific Gravity,Urine 1.038 (1.001-1.035); Urobilinogen,Urine <2.0 mg/dL (<2.0)
--- NOTE | 2018-10-18 23:48 | CT ---
EXAM: CT Abdomen and Pelvis With Intravenous Contrast CLINICAL HISTORY: ITS.REASON CT Reason: abdominal pain TECHNIQUE: Axial computed tomography images of the abdomen and pelvis with intravenous contrast. This CT exam was performed using one or more of the following dose reduction techniques: automated exposure control, adjustment of the mA and/or kV according to patient size, and/or use of iterative reconstruction technique. COMPARISON: No relevant prior studies available. FINDINGS: Lung bases demonstrate no acute infiltrate. Mild atelectasis. Coronary atherosclerosis. Stent along the rightward aspect of the left atrium. Right lobe hepatic cysts. No intrahepatic biliary dilation. The gallbladder and the biliary tree are unremarkable. The pancreas, spleen, and adrenal glands are within normal limits. Nonobstructing 4 mm calculus to the upper pole of the right kidney. High-grade small bowel obstruction with a transition point in the right lower quadrant at the ileoileal anastomotic site. Small amount of adjacent edema. No abscess or free air. Aortoiliac atherosclerosis without aneurysm. IMPRESSION: High-grade SBO, transition point at the RLQ small bowel anastomosis. No perforation. Nonobstructing pole right renal calculus..
[2018-10-19] MEDS ORDERED: ONDANSETRON 4 MG/2 ML VIAL IVP STA (00:02)
[2018-10-19] MEDS ORDERED: METOCLOPRAMIDE 5 MG/ML 2 ML VIAL IVP STA (01:00)
[2018-10-19] MEDS ORDERED: HYDROmorphone 0.5 MG/0.5 ML SYRINGE IVP STA (01:00)
[2018-10-19] MEDS ORDERED: metroNIDAZOLE-NS PMX 500 MG in SALINE 1 100ML.BAG IVPB STA (01:01)
[2018-10-19] MEDS ORDERED: NALOXONE 0.4 MG/ML 1 ML VIAL IV PRN (01:09)
--- NOTE | 2018-10-19 01:14 | XR ---
EXAM: XR Chest, 1 View CLINICAL HISTORY: ITS.REASON XR Reason: Pain TECHNIQUE: Frontal view of the chest. COMPARISON: CT abdomen and pelvis of 10/18/89. FINDINGS: Lungs: Unremarkable. No consolidation. Pleural space: Unremarkable. No pneumothorax. Heart: Unremarkable. No cardiomegaly. Mediastinum: Enteric tube with tip and side-port projecting in the proximal stomach. Bones/joints: Unremarkable. IMPRESSION: Enteric tube with tip and side-port projecting in the proximal stomach.
[2018-10-19] MEDS ORDERED: SODIUM CHLORIDE 0.9% 1,000 ML IV STA (02:03)
[2018-10-19] MEDS: SODIUM CHLORIDE 0.9% 1,000 ML IV SCH ×3 (03:08→20:48)
--- NOTE | 2018-10-19 03:10 | XR ---
EXAM: XR Chest, 1 View CLINICAL HISTORY: ITS.REASON XR Reason: NG placement check TECHNIQUE: Frontal view of the chest. COMPARISON: 00:33 hours FINDINGS: Lungs: Diminished lung volumes. No focal consolidation. Pleural space: Unremarkable. No pneumothorax. Heart: Unremarkable. No cardiomegaly. Mediastinum: Unremarkable. Bones/joints: Unremarkable. Tubes, lines and devices: The nasogastric tube traverses the mediastinum and has been advanced from the previous examination and is now looped in the left upper quadrant with the tip in the region of the fundus of the stomach. IMPRESSION: The nasogastric tube traverses the mediastinum and has been advanced from the previous examination and is now looped in the left upper quadrant with the tip in the region of the fundus of the stomach.
[2018-10-19] MEDS ORDERED: MORPHINE SULFATE 4 MG/ML SYRINGE IVP PRN (03:38)
[2018-10-19 08:11] LABS: Glucose,Whole Blood 131 mg/dL (75-99)
[2018-10-19 08:27] VITALS: BMI 24.5
[2018-10-19] MEDS: metroNIDAZOLE-NS PMX 500 MG in SALINE 1 100ML.BAG IVPB SCH ×2 (09:56→17:11)
[2018-10-19] MEDS ORDERED: HYDROcodone/APAP 10-325MG 1 EACH TAB PO PRN (12:52)
[2018-10-19] MEDS: METOPROLOL TARTRATE 25 MG TAB PO SCH (13:01)
[2018-10-19] MEDS: CLOPIDOGREL 75 MG TAB PO SCH (13:02)
--- NOTE | 2018-10-19 13:05 | P.GSCN ---
History of Present Illness Consult date: 10/19/18 Reason for Consult: Small bowel obstruction History of present illness: This 63-year-old male with a chief complaint of abdominal pain nausea vomiting. States this has been going on for several days and he's never had pain like this before. He has a history of a rectal cancer status post excision with loop ileostomy and loop ileostomy takedown approximately 5 years ago. He also has atrial fibrillation and has had stenting in his pulmonary arteries he is on anticoagulation for this along with Plavix. Patient states that this morning or overnight last night he had a large bowel movement and his abdominal pain resolved. He's had several liquid bowel movements since then. He says is normal for him to have multiple liquid bowel movements during the day. CT scan which was taken prior to his large bowel movement showed small bowel obstruction near the anastomosis from his loop ileostomy. Past Medical History Past Medical History: Atrial Fibrillation, Deep Vein Thrombosis (DVT) Additional Past Medical History / Comment(s): colorectal cancer, scarring pulmonary veins. History of Any Multi-Drug Resistant Organisms: None Reported Past Surgical History: Orthopedic Surgery Additional Past Surgical History / Comment(s): ablation, stents, heart cath, stent LAD Past Anesthesia/Blood Transfusion Reactions: No Reported Reaction Past Psychological History: No Psychological Hx Reported Smoking Status: Never smoker Past Alcohol Use History: None Reported, Occasional Past Drug Use History: None Reported Medications and Allergies Home Medications Medication Instructions Recorded Confirmed Type Chlorthalidone [Hygroton] 25 mg PO DAILY 03/27/18 10/18/18 History Cholecalciferol [Vitamin D3] 1,000 unit PO DAILY 03/27/18 10/18/18 History Clopidogrel [Plavix] 75 mg PO DAILY 03/27/18 10/18/18 History Ezetimibe [Zetia] 10 mg PO DAILY 03/27/18 10/18/18 History Glucosamine Sulfate 3,000 mg PO BID 03/27/18 10/18/18 History Potassium 99 mg PO BID 03/27/18 10/18/18 History Rivaroxaban [Xarelto] 20 mg PO DAILY 03/27/18 10/18/18 History Turmeric Root Extract [Turmeric] 2,000 mg PO DAILY 03/27/18 10/18/18 History Vit C/E/Zn/Coppr/Lutein/Zeaxan 1 cap PO BID 03/27/18 10/18/18 History [Preservision Areds 2 Softgel] Vitamin E 1,000 unit PO BID 03/27/18 10/18/18 History Metoprolol Tartrate [Lopressor] 25 mg PO DAILY 06/29/18 10/18/18 History Sildenafil [Revatio] 20 mg PO DAILY 10/18/18 10/18/18 History Tadalafil [Cialis] 5 mg PO DAILY 10/18/18 10/18/18 History Allergies Allergy/AdvReac Type Severity Reaction Status Date / Time demeclocycline Allergy Unknown Verified 10/18/18 22:44 [From Declomycin] Surgical - Exam Osteopathic Statement: *. No significant issues noted on an osteopathic structural exam other than those noted in the History and Physical/Consult. Vital Signs Temp Pulse Resp BP Pulse Ox 98.3 F 91 20 146/99 99 10/18/18 22:08 10/18/18 22:08 10/18/18 22:08 10/18/18 22:08 10/18/18 22:08 - General well developed, well nourished, no distress - Neck trachea midline - Respiratory normal expansion, normal respiratory effort - Cardiovascular Afib - Abdomen nondistended Abdomen: soft, non tender - Neurologic normal coordination, normal sensation - Psychiatric oriented to time, oriented to person, oriented to place Results - Labs 10/18/18 22:30 10/18/18 22:30 Abnormal Lab Results - Last 24 Hours (Table) 10/18/18 10/18/18 10/18/18 Range/Units 22:30 22:30 23:30 WBC 14.9 H (3.8-10.6) k/uL MCV 78.8 L (80.0-100.0) fL RDW 17.0 H (11.5-15.5) % Neutrophils # 12.6 H (1.3-7.7) k/uL Potassium 3.4 L (3.5-5.1) mmol/L BUN 25 H (9-20) mg/dL Creatinine 1.30 H (0.66-1.25) mg/dL Glucose 144 H (74-99) mg/dL POC Glucose (mg/dL) (75-99) mg/dL Lipase 311 H (23-300) U/L Ur Specific [place] 1.038 H (1.001-1.035) Urine Protein Trace H (Negative) 10/19/18 Range/Units 07:57 WBC (3.8-10.6) k/uL MCV (80.0-100.0) fL RDW (11.5-15.5) % Neutrophils # (1.3-7.7) k/uL Potassium (3.5-5.1) mmol/L BUN (9-20) mg/dL Creatinine (0.66-1.25) mg/dL Glucose (74-99) mg/dL POC Glucose (mg/dL) 131 H (75-99) mg/dL Lipase (23-300) U/L Ur Specific [place] (1.001-1.035) Urine Protein (Negative) Diabetes panel 10/18/18 Range/Units 22:30 Sodium 137 (137-145) mmol/L Potassium 3.4 L (3.5-5.1) mmol/L Chloride 99 (98-107) mmol/L Carbon Dioxide 29 (22-30) mmol/L BUN 25 H (9-20) mg/dL Creatinine 1.30 H (0.66-1.25) mg/dL Glucose 144 H (74-99) mg/dL Calcium 9.3 (8.4-10.2) mg/dL AST 23 (17-59) U/L ALT 30 (21-72) U/L Alkaline Phosphatase 106 (38-126) U/L Total Protein 7.4 (6.3-8.2) g/dL Albumin 4.5 (3.5-5.0) g/dL Calcium panel 10/18/18 Range/Units 22:30 Calcium 9.3 (8.4-10.2) mg/dL Albumin 4.5 (3.5-5.0) g/dL Pituitary panel 10/18/18 Range/Units 22:30 Sodium 137 (137-145) mmol/L Potassium 3.4 L (3.5-5.1) mmol/L Chloride 99 (98-107) mmol/L Carbon Dioxide 29 (22-30) mmol/L BUN 25 H (9-20) mg/dL Creatinine 1.30 H (0.66-1.25) mg/dL Glucose 144 H (74-99) mg/dL Calcium 9.3 (8.4-10.2) mg/dL Adrenal panel 10/18/18 Range/Units 22:30 Sodium 137 (137-145) mmol/L Potassium 3.4 L (3.5-5.1) mmol/L Chloride 99 (98-107) mmol/L Carbon Dioxide 29 (22-30) mmol/L BUN 25 H (9-20) mg/dL Creatinine 1.30 H (0.66-1.25) mg/dL Glucose 144 H (74-99) mg/dL Calcium 9.3 (8.4-10.2) mg/dL Total Bilirubin 1.0 (0.2-1.3) mg/dL AST 23 (17-59) U/L ALT 30 (21-72) U/L Alkaline Phosphatase 106 (38-126) U/L Total Protein 7.4 (6.3-8.2) g/dL Albumin 4.5 (3.5-5.0) g/dL Assessment and Plan Assessment: Small bowel obstruction likely secondary to adhesive disease Plan: Small bowel obstruction appears to be resolved. His pain is resolved he is having bowel movements now. He did have an NG tube that was placed in the emergency department. This is currently clamped. If he is tolerating the clamping of the NG tube he may start on clear liquids if he tolerates this NG tube can be discontinued today. No plans for acute surgical intervention
[2018-10-19] MEDS: SILDENAFIL 20 MG TAB PO SCH (15:25)
[2018-10-19] MEDS: RIVAROXABAN 20 MG TAB PO SCH (15:25)
--- NOTE | 2018-10-19 20:24 | P.HPIM ---
History of Present Illness H&P Date: 10/19/18 Chief Complaint: Abdominal pain History of presenting complaint: This is a very pleasant 63-year-old patient of Dr. Isaiah doe. Chronic stable medical conditions include atrial fibrillation, coronary artery disease stented 2016, and a DVT in 2012 following surgery for colon cancer. Patient presented after what he describes as feeling like a "blah"for 1 day. Progress to have increasing and worsening lower abdominal pain generalized. Accompanied by nausea. There were no fever or chills. Normally has 5 or 6 bowel movements a day since his colon surgery. Does no bowel movement yesterday. Patient had 2 bowel movements earlier today. NG tube was placed for the small bowel obstruction. Feeling better this morning when I saw the patient. Daughter is present. Patient abdomen is also distended decided to come down. Surgery was consulted. Review of systems: GEN.: Tired EYES: None HEENT: None NECK: None RESPIRATORY: None CARDIOVASCULAR: None GASTROINTESTINAL: As above GENITOURINARY: None MUSCULOSKELETAL: None LYMPHATICS: None HEMATOLOGICAL: None PSYCHIATRY: None NEUROLOGICAL: None Past medical history: Atrial fibrillation, DVT in 2012 following colon surgery, coronary artery disease with stent in 2016 Family history: Reviewed, noncontributory to presentation Social history: Does not smoke. Alcohol occasionally. Lives with girlfriend. Works as a contractor. Works at [employer]. Physical examination: VITAL SIGNS: 98.3, 91, 20, 146), 99% room air on presentation GENERAL: Average built, laying in bed not in distress. EYES: Pupils equal. Conjunctiva normal. HEENT: External appearance of nose and ears normal, oral cavity dry, with NG t ube in place. NECK: JVD not raised; masses not palpable. HEART: First and second heart sounds are normal; no edema. LUNGS: Respiratory rate normal; clear to auscultation. ABDOMEN: Soft, slightly tender, slightly distended, liver spleen not palpable, no masses palpable, bowel sounds present. LYMPHATICS: No lymph nodes palpable in the axilla and neck. PSYCH: Alert and oriented x3; mood and affect normal. NEUROLOGICAL: Cranial nerves grossly intact; no facial asymmetry, power and sensation grossly intact. Investigations: Chest x-ray film personally reviewed by me shows borderline cardiomegaly lung acevedo are clear EKG tracing personally reviewed by me shows atrial fibrillation with a rapid ventricle rate. Computed tomography scan of the abdomen reports high-grade SBO Assessment: -High-grade small bowel obstruction likely from adhesions in a patient with prior bowel surgery -History of colon cancer with large amount of bowel large resected, with a baseline 4-5 bowel movements a day -Persistent atrial fibrillation with a rapid ventricular rate -Coronary artery disease with prior history of stent -Chronically on anticoagulation Plan: Patient has an NG tube. Was made nothing by mouth. Except for medications. Care was discussed with the patient. Surgery was consulted. We'll follow closely. Questions were answered. Past Medical History Past Medical History: Atrial Fibrillation, Deep Vein Thrombosis (DVT) Additional Past Medical History / Comment(s): colorectal cancer, scarring pulmonary veins. History of Any Multi-Drug Resistant Organisms: None Reported Past Surgical History: Orthopedic Surgery Additional Past Surgical History / Comment(s): ablation, stents, heart cath, stent LAD Past Anesthesia/Blood Transfusion Reactions: No Reported Reaction Past Psychological History: No Psychological Hx Reported Smoking Status: Never smoker Past Alcohol Use History: None Reported, Occasional Past Drug Use History: None Reported Medications and Allergies Home Medications Medication Instructions Recorded Confirmed Type Chlorthalidone [Hygroton] 25 mg PO DAILY 03/27/18 10/18/18 History Cholecalciferol [Vitamin D3] 1,000 unit PO DAILY 03/27/18 10/18/18 History Clopidogrel [Plavix] 75 mg PO DAILY 03/27/18 10/18/18 History Ezetimibe [Zetia] 10 mg PO DAILY 03/27/18 10/18/18 History Glucosamine Sulfate 3,000 mg PO BID 03/27/18 10/18/18 History Potassium 99 mg PO BID 03/27/18 10/18/18 History Rivaroxaban [Xarelto] 20 mg PO DAILY 03/27/18 10/18/18 History Turmeric Root Extract [Turmeric] 2,000 mg PO DAILY 03/27/18 10/18/18 History Vit C/E/Zn/Coppr/Lutein/Zeaxan 1 cap PO BID 03/27/18 10/18/18 History [Preservision Areds 2 Softgel] Vitamin E 1,000 unit PO BID 03/27/18 10/18/18 History Metoprolol Tartrate [Lopressor] 25 mg PO DAILY 06/29/18 10/18/18 History Sildenafil [Revatio] 20 mg PO DAILY 10/18/18 10/18/18 History Tadalafil [Cialis] 5 mg PO DAILY 10/18/18 10/18/18 History Allergies Allergy/AdvReac Type Severity Reaction Status Date / Time demeclocycline Allergy Unknown Verified 10/18/18 22:44 [From Declomycin] Physical Exam Vitals: Vital Signs Temp Pulse Pulse Resp BP BP Pulse Ox 10/19/18 17:00 106 H 16 108/70 97 10/19/18 16:00 98.3 F 98 12 125/84 95 10/19/18 12:00 97.9 F 117 H 17 122/90 94 L 10/19/18 08:00 98.1 F 112 H 11 L 113/96 97 10/19/18 06:48 98.2 F 115 H 18 126/87 97 10/19/18 05:40 115 H 17 114/95 10/19/18 05:00 131 H 18 118/88 96 10/19/18 04:40 126 H 19 121/92 97 10/19/18 04:20 116 H 18 120/79 97 10/19/18 04:00 118 H 18 135/85 96 10/19/18 03:20 120 H 19 125/96 98 10/19/18 03:00 122 H 18 132/86 99 10/19/18 02:46 98.1 F 10/19/18 02:40 131 H 20 126/87 99 10/19/18 02:00 151 H 19 131/95 93 L 10/19/18 01:40 144 H 18 115/91 93 L 10/19/18 00:36 97.8 F 76 18 146/90 96 10/18/18 22:08 98.3 F 91 20 146/99 99 Intake and Output 10/19/18 10/19/18 10/19/18 06:59 14:59 22:59 Intake Total 440 240 Balance 440 240 Intake: Intake, IV Titration 440 Amount Sodium Chloride 0.9% 1, 440 000 ml @ 120 mls/hr IV . Q8H20M [facility] Rx#:[id number] Oral 240 Other: # Voids 2 Weight 77.4 kg Results CBC & Chem 7: 10/18/18 22:30 10/18/18 22:30 Labs: Abnormal Lab Results - Last 24 Hours (Table) 10/18/18 10/18/18 10/18/18 Range/Units 22:30 22:30 23:30 WBC 14.9 H (3.8-10.6) k/uL MCV 78.8 L (80.0-100.0) fL RDW 17.0 H (11.5-15.5) % Neutrophils # 12.6 H (1.3-7.7) k/uL Potassium 3.4 L (3.5-5.1) mmol/L BUN 25 H (9-20) mg/dL Creatinine 1.30 H (0.66-1.25) mg/dL Glucose 144 H (74-99) mg/dL POC Glucose (mg/dL) (75-99) mg/dL Lipase 311 H (23-300) U/L Ur Specific Franklin 1.038 H (1.001-1.035) Urine Protein Trace H (Negative) 10/19/18 Range/Units 07:57 WBC (3.8-10.6) k/uL MCV (80.0-100.0) fL RDW (11.5-15.5) % Neutrophils # (1.3-7.7) k/uL Potassium (3.5-5.1) mmol/L BUN (9-20) mg/dL Creatinine (0.66-1.25) mg/dL Glucose (74-99) mg/dL POC Glucose (mg/dL) 131 H (75-99) mg/dL Lipase (23-300) U/L Ur Specific Franklin (1.001-1.035) Urine Protein (Negative) Thrombosis Risk Factor Assmnt - Choose All That Apply Each Risk Factor Represents 2 Points: Age 61-74 years Each Risk Factor Represents 3 Points: History of DVT/PE Thrombosis Risk Factor Assessment Total Risk Factor Score: 5 Thrombosis Risk Factor Assessment Level: High Risk
[2018-10-20] MEDS: metroNIDAZOLE-NS PMX 500 MG in SALINE 1 100ML.BAG IVPB SCH ×2 (01:42→08:16)
[2018-10-20] MEDS: SODIUM CHLORIDE 0.9% 1,000 ML IV SCH (03:44)
[2018-10-20 06:31] LABS: Anisocytosis Slight; Basophils % (A) 0 %; Eosinophils # (A) 0.2 k/uL (0-0.7); Eosinophils % (A) 3 %; HCT 39.4 % (39.0-53.0); HGB 12.2 gm/dL (13.0-17.5); Hypochromasia Slight; Lymphocytes # (A) 1.2 k/uL (1.0-4.8); Lymphocytes % (A) 16 %; MCH 25.1 pg (25.0-35.0); MCV 80.9 fL (80.0-100.0); Mean Platelet Volume 6.6; Monocytes # (A) 0.6 k/uL (0-1.0); Monocytes % (A) 8 %; Neutrophils # (A) 5.1 k/uL (1.3-7.7); Neutrophils % (A) 71 %; Platelet Count 204 k/uL (150-450); RBC 4.86 m/uL (4.30-5.90); RDW 17.2 % (11.5-15.5); WBC 7.2 k/uL (3.8-10.6)
[2018-10-20 06:46] LABS: Calcium 8.3 mg/dL (8.4-10.2); Potassium 3.3 mmol/L (3.5-5.1)
[2018-10-20] MEDS: METOPROLOL TARTRATE 25 MG TAB PO SCH (08:11)
[2018-10-20] MEDS: CLOPIDOGREL 75 MG TAB PO SCH (08:11)
[2018-10-20] MEDS: RIVAROXABAN 20 MG TAB PO SCH (08:11)
[2018-10-20] MEDS: SILDENAFIL 20 MG TAB PO SCH (08:12)
[2018-10-20] MEDS ORDERED: EZETIMIBE 10 MG TAB PO SCH (09:00)
[2018-10-20 09:19] VITALS: RESP 20; TEMP 98.6
[2018-10-20 11:46] VITALS: BP 120/75; PULSE 94
[2018-10-20] MEDS ORDERED: POTASSIUM CHLORIDE ER 20 MEQ TAB.ER PO STA (13:10)
--- NOTE | 2018-10-20 14:12 | XR ---
EXAMINATION TYPE: XR abdomen 2V DATE OF EXAM: 10/20/2018 COMPARISON: NONE HISTORY: Pain TECHNIQUE: One view abdominal series FINDINGS: The osseous structures are intact. The bowel gas pattern is nonspecific. There are prominent bowel l oops in the abdomen. Air-fluid levels are noted. Lung bases are clear. Stents are noted overlying th e heart correlate for vascular stents and coronary artery disease. IMPRESSION: 1. Nonspecific abdomen. Multiple air-fluid levels. Differential diagnosis would include obstruction or ileus/enteritis. Recommend follow-up CT scan.
--- NOTE | 2018-10-20 14:16 | P.PN ---
Subjective Progress Note Date: 10/20/18 Patient doing well tolerating soft diet, abdominal pain and distention is resolved Objective - Vital Signs Vital signs: Vital Signs Temp 98.6 F 10/20/18 11:45 Pulse 94 10/20/18 11:45 Resp 20 10/20/18 11:45 BP 120/75 10/20/18 11:45 Pulse Ox 96 10/20/18 11:45 Intake & Output 10/19/18 10/20/18 10/20/18 18:59 06:59 18:59 Intake Total 680 503 Balance 680 503 Intake: Intake, IV Titration 440 Amount Sodium Chloride 0.9% 1, 440 000 ml @ 120 mls/hr IV . Q8H20M [facility] Rx#:[id number] Oral 240 503 Other: Voiding Method Toilet # Voids 2 - Constitutional General appearance: Present: cooperative - Respiratory Details: nonlabored - Cardiovascular Rhythm: regularly irregular - Gastrointestinal Gastrointestinal Comment(s): S/NT/ND - Psychiatric Psychiatric: Present: A&O x's 3 - Labs CBC & Chem 7: 10/20/18 05:48 10/20/18 05:48 Labs: Abnormal Lab Results - Last 24 Hours (Table) 10/20/18 10/20/18 Range/Units 05:48 05:48 Hgb 12.2 L (13.0-17.5) gm/dL RDW 17.2 H (11.5-15.5) % Potassium 3.3 L (3.5-5.1) mmol/L Carbon Dioxide 31 H (22-30) mmol/L Calcium 8.3 L (8.4-10.2) mg/dL Microbiology - Last 24 Hours (Table) 10/19/18 01:15 Blood Culture - Preliminary Blood No Growth after 24 hours Assessment and Plan Assessment: Small bowel obstruction likely secondary to adhesive disease Plan: Small bowel obstruction resolved, patient is tolerating diet. Patient stable from surgical standpoint for DC
[2018-10-20] MEDS ORDERED: metroNIDAZOLE 500 MG TAB PO SCH (17:00)
--- NOTE | 2018-10-20 23:22 | P.DS ---
Providers Date of admission: 10/19/18 00:25 Expected date of discharge: 10/20/18 Attending physician: Gualberto Richards Consults: 10/19/18 01:09 Consult Physician Stat Consulting Provider: Reji Yu Consult Reason/Comments: small bowel obstruction Do you want consulting provider notified?: Yes Primary care physician: Hernan Cheatham [facility] Course: This is a very pleasant 63-year-old patient of Dr. Isaiah cheatham. Chronic stable medical conditions include atrial fibrillation, coronary artery disease stented 2016, and a DVT in 2012 following surgery for colon cancer. Patient presented after what he describes as feeling like a "blah"for 1 day. Progress to have increasing and worsening lower abdominal pain generalized. Accompanied by nausea. There were no fever or chills. Normally has 5 or 6 bowel movements a day since his colon surgery. Does no bowel movement yesterday. Patient had 2 bowel movements earlier today. NG tube was placed for the small bowel obstruction. Patient did well. NG tube was discontinued. Had bowel movements. No further nausea vomiting. Up and about the hallway today. I did see the patient earlier today. Did order an abdominal x-ray. Discussed the results with the surgeon. He was okay the patient going home. As patient doing well. Diet was advanced. Discussion discharge planning more than 35 minutes On examination: 98.6, 94, 20, 120/75, 96% room air Lungs-clear Abdomen-soft nontender pulses present Labs: White count 7.2 BUN 16 creatinine 1.07 Patient Condition at Discharge: Stable Plan - Discharge Summary Discharge Rx Participant: Yes New Discharge Prescriptions: Continue Rivaroxaban [Xarelto] 20 mg PO DAILY Vitamin E 1,000 unit PO BID Vit C/E/Zn/Coppr/Lutein/Zeaxan [Preservision Areds 2 Softgel] 1 cap PO BID Turmeric Root Extract [Turmeric] 2,000 mg PO DAILY Potassium 99 mg PO BID Glucosamine Sulfate 3,000 mg PO BID Ezetimibe [Zetia] 10 mg PO DAILY Clopidogrel [Plavix] 75 mg PO DAILY Cholecalciferol [Vitamin D3 (25 Mcg = 1000 Iu)] 1,000 unit PO DAILY Chlorthalidone [Hygroton] 25 mg PO DAILY Metoprolol Tartrate [Lopressor] 25 mg PO DAILY Tadalafil [Cialis] 5 mg PO DAILY Sildenafil [Revatio] 20 mg PO DAILY Discharge Medication List Chlorthalidone [Hygroton] 25 mg PO DAILY 03/27/18 [History] Cholecalciferol [Vitamin D3 (25 Mcg = 1000 Iu)] 1,000 unit PO DAILY 03/27/18 [History] Clopidogrel [Plavix] 75 mg PO DAILY 03/27/18 [History] Ezetimibe [Zetia] 10 mg PO DAILY 03/27/18 [History] Glucosamine Sulfate 3,000 mg PO BID 03/27/18 [History] Potassium 99 mg PO BID 03/27/18 [History] Rivaroxaban [Xarelto] 20 mg PO DAILY 03/27/18 [History] Turmeric Root Extract [Turmeric] 2,000 mg PO DAILY 03/27/18 [History] Vit C/E/Zn/Coppr/Lutein/Zeaxan [Preservision Areds 2 Softgel] 1 cap PO BID 03/27/18 [History] Vitamin E 1,000 unit PO BID 03/27/18 [History] Metoprolol Tartrate [Lopressor] 25 mg PO DAILY 06/29/18 [History] Sildenafil [Revatio] 20 mg PO DAILY 10/18/18 [History] Tadalafil [Cialis] 5 mg PO DAILY 10/18/18 [History] Follow up Appointment(s)/Referral(s): Reji Yu DO [Doctor of Osteopathic Medicine] - As Needed Hernan Cheatham MD [Primary Care Provider] - 10/24/18 12:00 pm Patient Instructions/Handouts: Regular Diet (DC), Bowel Obstruction (DC) Discharge Disposition: HOME SELF-CARE
== END 2018-10-20 15:46 | disposition home or self-care (01) | DRG 389 ==
LOC: EC 21:57 → 3SCARD 10-19 00:25 → 2SICU 10-19 06:20 → 3SCARD 10-19 16:47
PROVIDERS: ADMIT Hospitalist; ATTEND Hospitalist
DX: K56.50 Intestinal adhesions [bands], unspecified as to partial versus complete obstruction (principal); I48.1 Persistent atrial fibrillation; D72.829 Elevated white blood cell count, unspecified; I25.10 Atherosclerotic heart disease of native coronary artery without angina pectoris; N32.0 Bladder-neck obstruction; R33.9 Retention of urine, unspecified; R73.9 Hyperglycemia, unspecified; Z79.01 Long term (current) use of anticoagulants; Z79.02 Long term (current) use of antithrombotics/antiplatelets; Z79.899 Other long term (current) drug therapy; Z85.048 Personal history of other malignant neoplasm of rectum, rectosigmoid junction, and anus; Z86.718 Personal history of other venous thrombosis and embolism; Z95.5 Presence of coronary angioplasty implant and graft; Z88.8 Allergy status to other drugs, medicaments and biological substances; Z90.49 Acquired absence of other specified parts of digestive tract
CPT/HCPCS: 36415; 51702; 71045; 74019; 74177; 80048; 80053; 81003; 83605; 83690; 84484; 85025; 87040; 93005; 96361; 96365; 96367; 96375; 96376; 99285

== ENCOUNTER 2020-10-12 18:16 | Emergency (ER) | payer OTHER, MEDICARE ==
[2020-10-12] MEDS ORDERED: BACITRACIN OINT 1 EACH PACKET TOPICAL ONE (19:07)
[2020-10-12] MEDS ORDERED: LIDOCAINE 1% INJ 10MG/ML (20 ML MDV) SQ ONE (19:07)
--- NOTE | 2020-10-12 19:47 | ED ---
Wound/Laceration HPI - General Chief Complaint: Wound/Laceration Stated Complaint: L hand finger laceration Time Seen by Provider: 10/12/20 18:59 Source: patient Mode of arrival: ambulatory Limitations: no limitations - History of Present Illness Initial Comments: Patient is a 65-year-old male presenting to the emergency Department with complaints of a laceration to his left index finger. Patient states he was using a razor blade to cut some tram when it slipped and sliced his finger, about an hour prior to arrival. He is on blood thinners, bleeding is controlled at this time with a bandage. His tetanus vaccine is up-to-date. He has no further complaints. - Related Data Home Medications Medication Instructions Recorded Confirmed Chlorthalidone [Hygroton] 25 mg PO DAILY 03/27/18 10/18/18 Cholecalciferol [Vitamin D3 (25 1,000 unit PO DAILY 03/27/18 10/18/18 Mcg = 1000 Iu)] Clopidogrel [Plavix] 75 mg PO DAILY 03/27/18 10/18/18 Ezetimibe [Zetia] 10 mg PO DAILY 03/27/18 10/18/18 Glucosamine Sulfate 3,000 mg PO BID 03/27/18 10/18/18 Potassium 99 mg PO BID 03/27/18 10/18/18 Rivaroxaban [Xarelto] 20 mg PO DAILY 03/27/18 10/18/18 Turmeric Root Extract [Turmeric] 2,000 mg PO DAILY 03/27/18 10/18/18 Vit C/E/Zn/Coppr/Lutein/Zeaxan 1 cap PO BID 03/27/18 10/18/18 [Preservision Areds 2 Softgel] Vitamin E (Dl,Tocopheryl Acet) 1,000 unit PO BID 03/27/18 10/18/18 [Vitamin E] Metoprolol Tartrate [Lopressor] 25 mg PO DAILY 06/29/18 10/18/18 Sildenafil [Revatio] 20 mg PO DAILY 10/18/18 10/18/18 Tadalafil [Cialis] 5 mg PO DAILY 10/18/18 10/18/18 Allergies Allergy/AdvReac Type Severity Reaction Status Date / Time demeclocycline Allergy Unknown Verified 10/12/20 18:28 [From Declomycin] Review of Systems ROS Statement: Those systems with pertinent positive or pertinent negative responses have been documented in the HPI. ROS Other: All systems not noted in ROS Statement are negative. Past Medical History Past Medical History: Atrial Fibrillation, Deep Vein Thrombosis (DVT) Additional Past Medical History / Comment(s): colorectal cancer, scarring pulmonary veins. History of Any Multi-Drug Resistant Organisms: None Reported Past Surgical History: Orthopedic Surgery Additional Past Surgical History / Comment(s): ablation, stents, heart cath, stent LAD Past Anesthesia/Blood Transfusion Reactions: No Reported Reaction Past Psychological History: No Psychological Hx Reported Smoking Status: Never smoker Past Alcohol Use History: None Reported, Occasional Past Drug Use History: None Reported General Exam - General Exam Comments Initial Comments: GENERAL: Patient is well-developed and well-nourished. Patient is nontoxic and in no acute distress. HEAD: Atraumatic, normocephalic. EYES: Pupils equal round and reactive to light, extraocular movements intact, sclera anicteric, conjunctiva are normal. Eyelids were unremarkable. ENT: Nares patent, oropharynx clear without exudates. Moist mucous membranes. NECK: Normal range of motion, supple without lymphadenopathy or JVD. LUNGS: Unlabored respirations. Breath sounds clear to auscultation bilaterally and equal. No wheezes rales or rhonchi. HEART: Regular rate and rhythm without murmurs, rubs or gallops. ABDOMEN: Soft, nontender, normoactive bowel sounds. No guarding, no rebound. No masses appreciated. : Deferred MUSCULOSKELETAL: Patient has full range of motion of his left fingers. Normal extremities with adequate strength and normal range of motion, no pitting or edema. No clubbing or cyanosis. SKIN: Warm, Dry, normal turgor, no rashes. Patient has a 1.5 cm laceration on the lateral aspect of the left index finger, proximal to the IP joint. Limitations: no limitations Course Vital Signs 10/12/20 18:27 Temperature 97 F L Pulse Rate 86 Respiratory 18 Rate Blood Pressure 134/98 O2 Sat by Pulse 98 Oximetry Procedures - Laceration Laceration #1 Consent Obtained: verbal consent Indication: laceration Site: other (Left index finger) Size (cm): 0 (1.5cm) Description: linear Depth: simple, single layer Anesthetic Used: lidocaine 1% Anesthesia Technique: local infiltration Amount (mls): 2 Pre-repair: irrigated extensively Type of Sutures: nylon Size of Sutures: 5-0 Number of Sutures: 5 Technique: simple, interrupted Patient Tolerated Procedure: well Medical Decision Making - Medical Decision Making Patient is a 65-year-old male here with a 1.5 cm laceration to left index finger. He is on blood thinners for bleeding is controlled well with a bandage. Patient's wound was cleaned, closed with 5, 5-0 sutures. He tolerated procedures well. His tetanus vaccine is up-to-date. He is stable for discharge. Sutures will be removed in 7-10 days. He is in agreement with this plan of care. Disposition Clinical Impression: Laceration of left index finger Disposition: HOME SELF-CARE Condition: Stable Instructions (If sedation given, give patient instructions): Care For Your Stitches (ED) Additional Instructions: Please return to the Emergency Department if symptoms worsen or any other concerns. Stitches need to be removed in 7-10 days. Keep area clean and dry. Is patient prescribed a controlled substance at d/c from ED?: No Referrals: Hernan Cheatham MD [Primary Care Provider] - 1-2 days Time of Disposition: 19:46
[2020-10-12 19:57] VITALS: BP 132/78; PULSE 84; RESP 16; TEMP 98
== END 2020-10-12 19:56 | disposition home or self-care (01) ==
LOC: EC 18:16
DX: S61.211A Laceration without foreign body of left index finger without damage to nail, initial encounter (principal); Z88.1 Allergy status to other antibiotic agents; Z79.01 Long term (current) use of anticoagulants; Y93.89 Activity, other specified; Z79.02 Long term (current) use of antithrombotics/antiplatelets; Z86.718 Personal history of other venous thrombosis and embolism; W26.8XXA Contact with other sharp object(s), not elsewhere classified, initial encounter
CPT/HCPCS: 12001; 99282; J2001

== ENCOUNTER 2021-05-26 10:11 | Emergency (ER) | payer OTHER, MEDICARE ==
[2021-05-26 10:19] VITALS: TEMP 98
[2021-05-26 10:34] LABS: Glucose,Whole Blood 134 mg/dL (75-99)
[2021-05-26] MEDS ORDERED: HUMAN PROTHROMBIN COMPLX 500 UNIT/16 ML VIAL IV ONE (11:00)
[2021-05-26] MEDS ORDERED: Kcentra PER PHARMACY 1 EACH MISC MISCELLANE PRN (11:16)
[2021-05-26] MEDS ORDERED: LABETALOL 5 MG/ML VIAL MDV IVP STA (11:17)
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
[2021-05-26 11:28] LABS: ALT 25 U/L (4-49); AST 31 U/L (17-59); African American GFR (CKD) >90 (>60 ml/min/1.73 sqM); Albumin 4.3 g/dL (3.5-5.0); Alkaline Phosphatase 113 U/L (38-126); Anion Gap 9 mmol/L; Blood Urea Nitrogen 18 mg/dL (9-20); Calcium 9.6 mg/dL (8.4-10.2); Carbon Dioxide 28 mmol/L (22-30); Chloride 100 mmol/L (98-107); Glucose 143 mg/dL (74-99); Non-African American GFR(CKD) >90 (>60 ml/min/1.73 sqM); Potassium 3.4 mmol/L (3.5-5.1); Sodium 137 mmol/L (137-145); Total Bilirubin 0.8 mg/dL (0.2-1.3); Total Protein 7.3 g/dL (6.3-8.2)
[2021-05-26] MEDS ORDERED: HUMAN PROTHROMBIN COMPLX IV ONE (11:30)
--- NOTE | 2021-05-26 11:32 | CT ---
EXAMINATION TYPE: CT brain cspine wo con DATE OF EXAM: 05/26/2021 COMPARISON: 10/18/2018 HISTORY: Weakness, confusion CT DLP: 1503.[address] of the brain was performed. There is a large intraparenchymal hemorrhage right parietal lobe measuring approximately 5.8 x 4.6 x 4.7 cm. There is extension into the right thalamus with a small amount of hemorrhagic extension into the right lateral ventricle. Small amount of hemorrhage within the third ventricle noted as well. Rig ht to left shift of 6.5 mm without definite subfalcine herniation at this time. IMPRESSION: 1. Large right parietal intraparenchymal hemorrhage as discussed above with right to left shift. I ca nnot exclude impending subfalcine herniation. CT Cervical Spine: Unenhanced CT of the cervical spine was performed with bone and soft tissue window settings submitted . Coronal and sagittal reconstruction is obtained. There is normal alignment and prevertebral soft tissues. No evidence for acute cervical fracture . Scattered degenerative disc disease and spondylosis. Biapical scarring. IMPRESSION: 1. No evidence for acute fracture or subluxation of the cervical spine.
[2021-05-26 11:48] LABS: Basophils % (A) 0 %; Eosinophils % (A) 0 %; HCT 41.1 % (39.0-53.0); HGB 13.2 gm/dL (13.0-17.5); Lymphocytes # (A) 0.6 k/uL (1.0-4.8); Lymphocytes % (A) 4 %; MCH 30.1 pg (25.0-35.0); MCV 93.8 fL (80.0-100.0); Mean Platelet Volume 7.3; Monocytes # (A) 0.7 k/uL (0-1.0); Monocytes % (A) 5 %; Neutrophils # (A) 12.5 k/uL (1.3-7.7); Neutrophils % (A) 90 %; Platelet Count 197 k/uL (150-450); RBC 4.38 m/uL (4.30-5.90); RDW 13.9 % (11.5-15.5); WBC 13.8 k/uL (3.8-10.6)
--- NOTE | 2021-05-26 12:04 | XR ---
EXAMINATION TYPE: XR pelvis AP view DATE OF EXAM: 05/26/2021 COMPARISON: NONE HISTORY: Pain The osseous structures are intact and the joint spaces are preserved. No acute fracture is seen. Vi sualized bowel gas pattern is nonspecific. Contrast systems noted. Arthropathy of the hips with d iffuse osteopenia. Hypertrophic change of the spine. IMPRESSION: 1. No acute fracture.
[2021-05-26 12:05] VITALS: RESP 18
--- NOTE | 2021-05-26 12:06 | XR ---
EXAMINATION TYPE: XR chest 1V portable DATE OF EXAM: 05/26/2021 COMPARISON: NONE HISTORY: Pain TECHNIQUE: Single frontal view of the chest is obtained. FINDINGS: Heart size mildly prominent. No pneumothorax or pleural effusion. Coarsened interstitium. No consolidation. IMPRESSION: Mild interstitial prominence could be on the basis of an interstitial pneumonitis or int erstitial lung disease correlate clinically.
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
[2021-05-26 12:32] LABS: Partial Thromboplastin Time 22.3 sec (22.0-30.0); Prothrombin Time 10.7 sec (9.0-12.0)
[2021-05-26 12:42] VITALS: PULSE 80
[2021-05-26 12:51] VITALS: BP 143/94
== END 2021-05-26 12:58 | disposition other institution (70) ==
LOC: EC 10:11
DX: I61.8 Other nontraumatic intracerebral hemorrhage (principal); Z88.1 Allergy status to other antibiotic agents
CPT/HCPCS: 99284; 96374; 96375; 36415; 80053; 82140; 84484; 85025; 85610; 85730; 72170; 71045; 72125; 70496; 70450; 70498; J7168; Q9967

== ENCOUNTER 2021-07-14 01:58 | Inpatient (IN) | payer OTHER, MEDICARE ==
[2021-07-14] MEDS ORDERED: SODIUM CHLORIDE 0.9% 1,000 ML IV STA (07:17)
[2021-07-14] MEDS ORDERED: ONDANSETRON 4 MG/2 ML VIAL IVP STA (07:30)
[2021-07-14] MEDS ORDERED: HYDROmorphone 0.5 MG/0.5 ML SYRINGE IVP STA (07:30)
--- NOTE | 2021-07-14 07:35 | ED ---
Abdominal Pain HPI - General Chief Complaint: Abdominal Pain Stated Complaint: Bowel blockage Time Seen by Provider: 07/14/21 07:17 Source: patient, RN notes reviewed Mode of arrival: ambulatory Limitations: no limitations - History of Present Illness Initial Comments: 65-year-old male presents emergency Department chief complaint of abdominal pain, concern for bowel obstruction. Patient states that history of colectomy secondary to colorectal cancer. Patient states that he is chronically on Lomotil. Patient states that he has not had a bowel movement states that he feels that he is block. Patient does admit to nausea and vomiting, pain diffuse ly over his abdomen bili states is improving. He states he does chills no reported fever. No chest pain or shortness of breath. - Related Data Home Medications Medication Instructions Recorded Confirmed Rivaroxaban [Xarelto] 20 mg PO DAILY 03/27/18 07/14/21 Vit C/E/Zn/Coppr/Lutein/Zeaxan 1 cap PO BID 03/27/18 07/14/21 [Preservision Areds 2 Softgel] Diphenox-Atrop 2.5-0.025 mg 1 - 2 tab PO Q6H PRN 05/26/21 07/14/21 [Lomotil] Dofetilide [Tikosyn] 500 mcg PO BID 05/26/21 07/14/21 Omeprazole 40 mg PO DAILY 05/26/21 07/14/21 Testosterone Cypionate 120 mg IM Q14D 05/26/21 07/14/21 [Depo-Testosterone] Carboxymethylcellulose Sodium 1 drop BOTH EYES Q4H PRN 07/14/21 07/14/21 [Refresh Tears] Potassium Chloride ER [K-Dur 20] 10 meq PO DAILY 07/14/21 07/14/21 amLODIPine [Norvasc] 2.5 mg PO DAILY 07/14/21 07/14/21 levETIRAcetam [Keppra] 1,000 mg PO Q12HR 07/14/21 07/14/21 Allergies Allergy/AdvReac Type Severity Reaction Status Date / Time demeclocycline Allergy Unknown Verified 07/14/21 08:14 [From Declomycin] Review of Systems ROS Statement: Those systems with pertinent positive or pertinent negative responses have been documented in the HPI. ROS Other: All systems not noted in ROS Statement are negative. Past Medical History Past Medical History: Atrial Fibrillation, Deep Vein Thrombosis (DVT) Additional Past Medical History / Comment(s): colorectal cancer, scarring pulmonary veins. History of Any Multi-Drug Resistant Organisms: None Reported Past Surgical History: Orthopedic Surgery Additional Past Surgical History / Comment(s): ablation, stents, heart cath, stent LAD Past Anesthesia/Blood Transfusion Reactions: No Reported Reaction Past Psychological History: No Psychological Hx Reported Smoking Status: Never smoker Past Alcohol Use History: Occasional Past Drug Use History: None Reported General Exam General appearance: alert, in no apparent distress Head exam: Present: atraumatic, normocephalic, normal inspection Eye exam: Present: normal appearance, PERRL, EOMI. Absent: scleral icterus, conjunctival injection, periorbital swelling ENT exam: Present: normal exam, normal oropharynx, mucous membranes moist Neck exam: Present: normal inspection, full ROM. Absent: tenderness, meni ngismus, lymphadenopathy Respiratory exam: Present: normal lung sounds bilaterally. Absent: respiratory distress, wheezes, rales, rhonchi, stridor Cardiovascular Exam: Present: normal rhythm, tachycardia, normal heart sounds. Absent: systolic murmur, diastolic murmur, rubs, gallop, clicks GI/Abdominal exam: Present: soft, tenderness, normal bowel sounds. Absent: distended, guarding, rebound, rigid Neurological exam: Present: alert, oriented X3 Skin exam: Present: warm, dry, intact, normal color. Absent: rash Course Vital Signs 07/14/21 02:31 Temperature 97.4 F L Pulse Rate 114 H Respiratory 20 Rate Blood Pressure 148/94 O2 Sat by Pulse 98 Oximetry Medical Decision Making - Medical Decision Making 65-year-old presented for abdominal pain. CT shows evidence of small bowel depression. Patient's symptoms are consistent with this. Patient will be admitted for fluid hydration, pain control, possible MG, surgical consult. - Lab Data Result diagrams: 07/14/21 07:36 07/14/21 07:36 Lab Results 07/14/21 07/14/21 07/14/21 Range/Units 07:36 07:36 07:36 WBC 8.3 (3.8-10.6) k/uL RBC 4.32 (4.30-5.90) m/uL Hgb 13.5 (13.0-17.5) gm/dL Hct 40.6 (39.0-53.0) % MCV 94.0 (80.0-100.0) fL MCH 31.3 (25.0-35.0) pg MCHC 33.2 (31.0-37.0) g/dL RDW 14.6 (11.5-15.5) % Plt Count 190 (150-450) k/uL MPV 7.0 Neutrophils % 85 % Lymphocytes % 9 % Monocytes % 4 % Eosinophils % 1 % Basophils % 0 % Neutrophils # 7.1 (1.3-7.7) k/uL Lymphocytes # 0.8 L (1.0-4.8) k/uL Monocytes # 0.3 (0-1.0) k/uL Eosinophils # 0.1 (0-0.7) k/uL Basophils # 0.0 (0-0.2) k/uL Sodium 136 L (137-145) mmol/L Potassium 4.2 (3.5-5.1) mmol/L Chloride 105 (98-107) mmol/L Carbon Dioxide 26 (22-30) mmol/L Anion Gap 5 mmol/L BUN 11 (9-20) mg/dL Creatinine 0.79 (0.66-1.25) mg/dL Est GFR (CKD-EPI)AfAm >90 (>60 ml/min/1.73 sqM) Est GFR (CKD-EPI)NonAf >90 (>60 ml/min/1.73 sqM) Glucose 135 H (74-99) mg/dL Plasma Lactic Acid [place] 2.5 H* (0.7-2.0) mmol/L Calcium 9.1 (8.4-10.2) mg/dL Total Bilirubin 0.5 (0.2-1.3) mg/dL AST 40 (17-59) U/L ALT 61 H (4-49) U/L Alkaline Phosphatase 136 H (38-126) U/L Total Protein 6.9 (6.3-8.2) g/dL Albumin 3.8 (3.5-5.0) g/dL Lipase 174 (23-300) U/L Urine Color Urine Appearance (Clear) Urine pH (5.0-8.0) Ur Specific [place] (1.001-1.035) Urine Protein (Negative) Urine Glucose (UA) (Negative) Urine Ketones (Negative) Urine Blood (Negative) Urine Nitrite (Negative) Urine Bilirubin (Negative) Urine Urobilinogen (<2.0) mg/dL Ur Leukocyte Esterase (Negative) 07/14/21 Range/Units 08:50 WBC (3.8-10.6) k/uL RBC (4.30-5.90) m/uL Hgb (13.0-17.5) gm/dL Hct (39.0-53.0) % MCV (80.0-100.0) fL MCH (25.0-35.0) pg MCHC (31.0-37.0) g/dL RDW (11.5-15.5) % Plt Count (150-450) k/uL MPV Neutrophils % % Lymphocytes % % Monocytes % % Eosinophils % % Basophils % % Neutrophils # (1.3-7.7) k/uL Lymphocytes # (1.0-4.8) k/uL Monocytes # (0-1.0) k/uL Eosinophils # (0-0.7) k/uL Basophils # (0-0.2) k/uL Sodium (137-145) mmol/L Potassium (3.5-5.1) mmol/L Chloride (98-107) mmol/L Carbon Dioxide (22-30) mmol/L Anion Gap mmol/L BUN (9-20) mg/dL Creatinine (0.66-1.25) mg/dL Est GFR (CKD-EPI)AfAm (>60 ml/min/1.73 sqM) Est GFR (CKD-EPI)NonAf (>60 ml/min/1.73 sqM) Glucose (74-99) mg/dL Plasma Lactic Acid [place] (0.7-2.0) mmol/L Calcium (8.4-10.2) mg/dL Total Bilirubin (0.2-1.3) mg/dL AST (17-59) U/L ALT (4-49) U/L Alkaline Phosphatase (38-126) U/L Total Protein (6.3-8.2) g/dL Albumin (3.5-5.0) g/dL Lipase (23-300) U/L Urine Color Yellow Urine Appearance Clear (Clear) Urine pH 7.0 (5.0-8.0) Ur Specific [place] 1.018 (1.001-1.035) Urine Protein Trace H (Negative) Urine Glucose (UA) Negative (Negative) Urine Ketones Negative (Negative) Urine Blood Negative (Negative) Urine Nitrite Negative (Negative) Urine Bilirubin Negative (Negative) Urine Urobilinogen <2.0 (<2.0) mg/dL Ur Leukocyte Esterase Negative (Negative) Disposition Clinical Impression: Small bowel obstruction Disposition: ADMITTED IP TO THIS HOSP Condition: Fair Referrals: Hernan Cheatham MD [Primary Care Provider] - 1-2 days
[2021-07-14 07:42] LABS: Basophils % (A) 0 %; Eosinophils # (A) 0.1 k/uL (0-0.7); Eosinophils % (A) 1 %; HCT 40.6 % (39.0-53.0); HGB 13.5 gm/dL (13.0-17.5); Lymphocytes # (A) 0.8 k/uL (1.0-4.8); Lymphocytes % (A) 9 %; MCH 31.3 pg (25.0-35.0); MCHC 33.2 g/dL (31.0-37.0); Monocytes # (A) 0.3 k/uL (0-1.0); Monocytes % (A) 4 %; Neutrophils # (A) 7.1 k/uL (1.3-7.7); Neutrophils % (A) 85 %; Platelet Count 190 k/uL (150-450); RBC 4.32 m/uL (4.30-5.90); RDW 14.6 % (11.5-15.5); WBC 8.3 k/uL (3.8-10.6)
[2021-07-14 07:53] LABS: ALT 61 U/L (4-49); AST 40 U/L (17-59); African American GFR (CKD) >90 (>60 ml/min/1.73 sqM); Albumin 3.8 g/dL (3.5-5.0); Alkaline Phosphatase 136 U/L (38-126); Anion Gap 5 mmol/L; Blood Urea Nitrogen 11 mg/dL (9-20); Calcium 9.1 mg/dL (8.4-10.2); Carbon Dioxide 26 mmol/L (22-30); Chloride 105 mmol/L (98-107); Glucose 135 mg/dL (74-99); Lipase 174 U/L (23-300); Non-African American GFR(CKD) >90 (>60 ml/min/1.73 sqM); Potassium 4.2 mmol/L (3.5-5.1); Sodium 136 mmol/L (137-145); Total Bilirubin 0.5 mg/dL (0.2-1.3); Total Protein 6.9 g/dL (6.3-8.2)
[2021-07-14 09:05] LABS: Appearance,Urine Clear (Clear); Bilirubin,Urine Negative (Negative); Blood,Urine Negative (Negative); Color,Urine Yellow; Glucose,Urine (UA) Negative (Negative); Ketones,Urine Negative (Negative); Leukocyte Esterase,Urine Negative (Negative); Nitrite,Urine Negative (Negative); Protein,Urine Trace (Negative); Specific Gravity,Urine 1.018 (1.001-1.035); Urobilinogen,Urine <2.0 mg/dL (<2.0)
--- NOTE | 2021-07-14 09:05 | CT ---
EXAMINATION TYPE: CT abdomen pelvis w con DATE OF EXAM: 07/14/2021 COMPARISON: CT abdomen and pelvis October 28, 2018. HISTORY: Abdominal pain, with reversal of colostomy. CT DLP: 598.9 mGycm, Automated Exposure Control for Dose Reduction was Utilized. CONTRAST: CT scan of the abdomen and pelvis is performed without oral but with IV Contrast, patient injected wi th 100 mL of Isovue 300. FINDINGS: LUNG BASES: Coronary stent in the LAD distribution are present.. LIVER/GB: Scattered approximately 4 low dense lesions throughout the liver measuring up to 1.8 cm axi al image 22 are stable presumed benign. PANCREAS: No significant abnormality is seen. SPLEEN: No significant abnormality is seen. ADRENALS: No significant abnormality is seen. KIDNEYS: No significant abnormality is seen. BOWEL: Suboptimal evaluation of bowel without contrast. No suspicious dilatation of stomach or duoden al sweep. Few small bowel loops are fluid-filled and prominent with air-fluid levels in the mid to lo wer abdomen greatest right of midline. Surgical sutures noted anterior right mid to lower abdomen. Sl ightly dilated small bowel loop with internal feces measuring up to 3.1 cm near level of sutures. Col on along the periphery shows no abnormal dilatation and is fecal filled. Surgical sutures at level of the rectum noted. Terminal ileum gas filled nondilated coronal image 39. No free air. Distinct trans ition point not identified. PROSTATE/SEMINAL VESICLES: No gross abnormality seen. LYMPH NODES: No greater than 1cm abdominal or pelvic lymph nodes are appreciated. OSSEOUS STRUCTURES: Moderate to severe disc space narrowing L5-S1 level. OTHER: Mild calcified plaque of the aorta extends into branch vessels. Small amount of free fluid in the pelvis IMPRESSION: Suspect a low-grade or partial distal small bowel obstruction related to adhesions as det shannon above.
[2021-07-14] MEDS ORDERED: NALOXONE 0.4 MG/ML 1 ML VIAL IV PRN ×2 (09:36→09:46)
[2021-07-14] MEDS ORDERED: ONDANSETRON 4 MG/2 ML VIAL IVP PRN (09:36)
[2021-07-14] MEDS ORDERED: HYDROmorphone 0.5 MG/0.5 ML SYRINGE IVP PRN (09:36)
[2021-07-14] MEDS: SODIUM CHLORIDE 0.9% 1,000 ML IV SCH (10:24)
--- NOTE | 2021-07-14 12:46 | P.HPIM ---
<Paras Bui - Last Filed: 07/14/21 16:13> History of Present Illness H&P Date: 07/14/21 History of Presenting Illness: Patient is a very pleasant 65-year-old male with a past medical history of color ectal cancer status post bowel resection with colostomy and reversal, hypertension, hyperlipidemia, atrial fibrillation on anticoagulation with Xarelto and planning for scheduled watchman's device to be placed next week secondary to recent hemorrhagic stroke on 05/25/2021. Patient states after hemor rhagic stroke he was taken off of anticoagulant but this was resumed on 07/13/21 to prepare for scheduled procedure. Patient presented to the emergency department today with a chief complaint of abdominal pain, nausea, and vomiting. Patient reports this pain began yesterday and progressively worsened, patient states this morning it was accompanied by persistent nausea and vomiting so he came to the emergency department because he was concerned that he may have an obstruction. Patient states that he was concerned that he may have an obstruction because he has been taking Lomotil chronically for treatment of his diarrhea. Patient denies having any fevers, chills, diaphoresis, chest pain, pa lpitations, shortness of breath, hematemesis, hematochezia, melena, difficulties with or changes in urinary function, or any other complaints. An abdominal CT with contrast was completed revealing a low-grade or partial distal small bowel obstruction believed to be secondary to adhesions. Lab findings revealed unremarkable CBC, unremarkable BMP, slightly elevated AST at 61 and alkaline phosphatase of 136 with initial lactate of 2.5. urinalysis negative for blood or infection. Patient admitted under our services with consultation to general surgery. Review of systems: Pertinent positives and negatives as discussed in HPI, a complete review of systems was performed and all other systems are negative. Physical exam: Vital signs reviewed and stable. General: Nontoxic, no distress and appears stated age. Derm: Skin warm and dry, normal coloration for ethnicity. Head: Atraumatic, normocephalic and symmetric. Eyes: EOMs intact, no lid lag, and anicteric sclera Mouth: no lip lesions, mucus membranes moist Cardiovascular: regular rate and rhythm with normal S1S2, no murmur, positive posterior tibial pulses bilaterally, and cap refill < 2 seconds. Lungs: Respirations even, regular, and unlabored on room air. Lungs CTA bilaterally, no rhonchi, no rales, no wheezing, and no accessory muscle usage. Abdominal: soft, slight tenderness upon palpation to right lower quadrant, no guarding, no appreciable organomegaly Ext: ROM intact. No gross muscle atrophy, no edema, no contractures Neuro: Speech clear, face symmetrical and CN II-XII grossly intact with no noted focal neuro deficits Psych: Alert and oriented to person, place, time, and situation. Appropriate and pleasant affect. Assessment and Plan of Care: Small bowel obstruction History of colorectal cancer status post bowel resection with colostomy and reversal -Patient reports resolution of nausea and vomiting, if nausea or vomiting returns we will need to place NG tube for bowel decompression -Gen. surgery consulted -Patient to be nothing by mouth pending evaluation by general surgery. -Continuous hydration with IV fluids. -Protonix 40 mg daily. -Hold Xarelto and place patient on heparin infusion to prepare for potential surgical procedure Lactic acidosis -IV bolus followed by generous IV fluid hydration. -Monitor for resolution. Atrial fibrillation on anticoagulation with Xarelto and planning for scheduled watchman's device to be placed next week secondary to recent hemorrhagic stroke on 05/25/2021 -Hold Xarelto in place patient on heparin infusion to prepare for potential surgical procedure. -Initial bolus held secondary to recent history of hemorrhagic stroke patient placed on low-dose infusion. Hypertension -Monitor vital signs and continue daily medication regimen with amlodipine. History of hemorrhagic CVA -Continue daily medication regimen with Keppra 1000 mg every 12 hours to prevent seizure activity. The patient is admitted with an anticipated greater than 2 midnight stay for evaluation of small bowel obstruction. CODE STATUS: Full code DVT prophylaxis: Heparin Discussed with: Patient, patient's son, and RN Anticipated discharge date: Clinical course to determine Anticipated discharge place: home A total of 45 minutes was spent on the care of this complex patient more than 50% of the time was spent in counseling and care coordination. Past Medical History Past Medical History: Atrial Fibrillation, Deep Vein Thrombosis (DVT) Additional Past Medical History / Comment(s): colorectal cancer, scarring pulmonary veins. History of Any Multi-Drug Resistant Organisms: None Reported Past Surgical History: Orthopedic Surgery Additional Past Surgical History / Comment(s): ablation, stents, heart cath, stent LAD Past Anesthesia/Blood Transfusion Reactions: No Reported Reaction Past Psychological History: No Psychological Hx Reported Smoking Status: Never smoker Past Alcohol Use History: Occasional Past Drug Use History: None Reported Medications and Allergies Home Medications Medication Instructions Recorded Confirmed Type Rivaroxaban [Xarelto] 20 mg PO DAILY 03/27/18 07/14/21 History Vit C/E/Zn/Coppr/Lutein/Zeaxan 1 cap PO BID 03/27/18 07/14/21 History [Preservision Areds 2 Softgel] Diphenox-Atrop 2.5-0.025 mg 1 - 2 tab PO Q6H PRN 05/26/21 07/14/21 History [Lomotil] Dofetilide [Tikosyn] 500 mcg PO BID 05/26/21 07/14/21 History Omeprazole 40 mg PO DAILY 05/26/21 07/14/21 History Testosterone Cypionate 120 mg IM Q14D 05/26/21 07/14/21 History [Depo-Testosterone] Carboxymethylcellulose Sodium 1 drop BOTH EYES Q4H PRN 07/14/21 07/14/21 History [Refresh Tears] Potassium Chloride ER [K-Dur 20] 10 meq PO DAILY 07/14/21 07/14/21 History amLODIPine [Norvasc] 2.5 mg PO DAILY 07/14/21 07/14/21 History levETIRAcetam [Keppra] 1,000 mg PO Q12HR 07/14/21 07/14/21 History Allergies Allergy/AdvReac Type Severity Reaction Status Date / Time demeclocycline Allergy Unknown Verified 07/14/21 08:14 [From Declomycin] Physical Exam Vitals: Vital Signs Temp Pulse Resp BP Pulse Ox 07/14/21 10:25 84 18 127/86 98 07/14/21 02:31 97.4 F L 114 H 20 148/94 98 Intake and Output 07/13/21 07/14/21 07/14/21 22:59 06:59 14:59 Other: Weight 72.575 kg Results CBC & Chem 7: 07/14/21 07:36 07/14/21 07:36 Labs: Abnormal Lab Results - Last 24 Hours (Table) 07/14/21 07/14/21 07/14/21 Range/Units 07:36 07:36 07:36 Lymphocytes # 0.8 L (1.0-4.8) k/uL Sodium 136 L (137-145) mmol/L Glucose 135 H (74-99) mg/dL Plasma Lactic Acid Aguilar 2.5 H* (0.7-2.0) mmol/L ALT 61 H (4-49) U/L Alkaline Phosphatase 136 H (38-126) U/L Urine Protein (Negative) 07/14/21 Range/Units 08:50 Lymphocytes # (1.0-4.8) k/uL Sodium (137-145) mmol/L Glucose (74-99) mg/dL Plasma Lactic Acid Aguilar (0.7-2.0) mmol/L ALT (4-49) U/L Alkaline Phosphatase (38-126) U/L Urine Protein Trace H (Negative) <Singh Sullivan - Last Filed: 07/14/21 18:46> History of Present Illness I reviewed the documentation as provided by the PAIGE above, who is the original author of this note. I agree with the documented assessment and plan, with the following changes: None Physical Exam Osteopathic Statement: *. No significant issues noted on an osteopathic structural exam other than those noted in the History and Physical/Consult. Vitals: Vital Signs Temp Pulse Resp BP Pulse Ox 07/14/21 17:56 80 18 140/88 98 07/14/21 10:25 84 18 127/86 98 07/14/21 02:31 97.4 F L 114 H 20 148/94 98 Intake and Output 07/14/21 07/14/21 07/14/21 06:59 14:59 22:59 Other: Weight 72.575 kg Results CBC & Chem 7: 07/14/21 07:36 07/14/21 07:36 Labs: Abnormal Lab Results - Last 24 Hours (Table) 07/14/21 07/14/21 07/14/21 Range/Units 07:36 07:36 07:36 Lymphocytes # 0.8 L (1.0-4.8) k/uL APTT (22.0-30.0) sec Sodium 136 L (137-145) mmol/L Glucose 135 H (74-99) mg/dL Plasma Lactic Acid Aguilar 2.5 H* (0.7-2.0) mmol/L ALT 61 H (4-49) U/L Alkaline Phosphatase 136 H (38-126) U/L Urine Protein (Negative) 03/15/22 03/15/22 Range/Units 08:50 13:08 Lymphocytes # (1.0-4.8) k/uL APTT 21.7 L (22.0-30.0) sec Sodium (137-145) mmol/L Glucose (74-99) mg/dL Plasma Lactic Acid Aguilar (0.7-2.0) mmol/L ALT (4-49) U/L Alkaline Phosphatase (38-126) U/L Urine Protein Trace H (Negative)
[2021-07-14] MEDS ORDERED: HEPARIN SODIUM 1,000 UN/ML (10ML VL) IV PRN (12:52)
[2021-07-14 13:53] LABS: Prothrombin Time 10.5 sec (9.0-12.0)
[2021-07-14 13:54] LABS: Partial Thromboplastin Time 21.7 sec (22.0-30.0)
[2021-07-14] MEDS: HEPARIN SOD,PORK IN 0.45% NACL 25,000 UNIT in 0.45% NACL 1 250ML.BAG IV SCH (16:11)
--- NOTE | 2021-07-14 18:09 | P.GSCN ---
History of Present Illness Consult date: 07/14/21 History of present illness: Patient was seen and examined in the emergency department as he is on hold for a bed. Patient states that over the last 2 days he's had increasing abdominal pain and some nausea and vomiting he has not had a bowel movement for over a day and a half now. He does have a history of a colectomy with a loop ileostomy and loop ileostomy takedown in the past for rectal cancer done at an outside facility. He's had small bowel obstructions before in the past which have resolved with conservative therapy. The patient states that today he is in fact feeling much better he denies passing any gas or bowel movement but his abdominal pain is significantly better. He denies any nausea or vomiting at this time and he states that his abdominal distention is improved. He states that he was on some Lomotil and that he thinks this may have contributed to him getting constipated and obstructed. 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 Past Medical History Past Medical History: Atrial Fibrillation, Deep Vein Thrombosis (DVT) Additional Past Medical History / Comment(s): colorectal cancer, scarring pulmonary veins. History of Any Multi-Drug Resistant Organisms: None Reported Past Surgical History: Orthopedic Surgery Additional Past Surgical History / Comment(s): ablation, stents, heart cath, stent LAD Past Anesthesia/Blood Transfusion Reactions: No Reported Reaction Past Psychological History: No Psychological Hx Reported Smoking Status: Never smoker Past Alcohol Use History: Occasional Past Drug Use History: None Reported Medications and Allergies Home Medications Medication Instructions Recorded Confirmed Type Rivaroxaban [Xarelto] 20 mg PO DAILY 03/27/18 07/14/21 History Vit C/E/Zn/Coppr/Lutein/Zeaxan 1 cap PO BID 03/27/18 07/14/21 History [Preservision Areds 2 Softgel] Diphenox-Atrop 2.5-0.025 mg 1 - 2 tab PO Q6H PRN 05/26/21 07/14/21 History [Lomotil] Dofetilide [Tikosyn] 500 mcg PO BID 05/26/21 07/14/21 History Omeprazole 40 mg PO DAILY 05/26/21 07/14/21 History Testosterone Cypionate 120 mg IM Q14D 05/26/21 07/14/21 History [Depo-Testosterone] Carboxymethylcellulose Sodium 1 drop BOTH EYES Q4H PRN 07/14/21 07/14/21 History [Refresh Tears] Potassium Chloride ER [K-Dur 20] 10 meq PO DAILY 07/14/21 07/14/21 History amLODIPine [Norvasc] 2.5 mg PO DAILY 07/14/21 07/14/21 History levETIRAcetam [Keppra] 1,000 mg PO Q12HR 07/14/21 07/14/21 History Allergies Allergy/AdvReac Type Severity Reaction Status Date / Time demeclocycline Allergy Unknown Verified 07/14/21 08:14 [From Declomycin] Surgical - Exam Osteopathic Statement: *. No significant issues noted on an osteopathic struc tural exam other than those noted in the History and Physical/Consult. Vital Signs Temp Pulse Resp BP Pulse Ox 97.4 F L 114 H 20 148/94 98 07/14/21 02:31 07/14/21 02:31 07/14/21 02:31 07/14/21 02:31 07/14/21 02:31 - General well developed, well nourished, no distress - Neck trachea midline - Respiratory normal expansion, normal respiratory effort - Cardiovascular Rhythm: regular - Abdomen Soft mild tenderness palpation nondistended no rebound no rigidity no guarding - Psychiatric oriented to time, oriented to person, oriented to place Results - Labs 07/14/21 07:36 07/14/21 07:36 Abnormal Lab Results - Last 24 Hours (Table) 07/14/21 07/14/21 07/14/21 Range/Units 07:36 07:36 07:36 Lymphocytes # 0.8 L (1.0-4.8) k/uL APTT (22.0-30.0) sec Sodium 136 L (137-145) mmol/L Glucose 135 H (74-99) mg/dL Plasma Lactic Acid Aguilar 2.5 H* (0.7-2.0) mmol/L ALT 61 H (4-49) U/L Alkaline Phosphatase 136 H (38-126) U/L Urine Protein (Negative) 07/14/21 07/14/21 Range/Units 08:50 13:08 Lymphocytes # (1.0-4.8) k/uL APTT 21.7 L (22.0-30.0) sec Sodium (137-145) mmol/L Glucose (74-99) mg/dL Plasma Lactic Acid Aguilar (0.7-2.0) mmol/L ALT (4-49) U/L Alkaline Phosphatase (38-126) U/L Urine Protein Trace H (Negative) Diabetes panel 07/14/21 Range/Units 07:36 Sodium 136 L (137-145) mmol/L Potassium 4.2 (3.5-5.1) mmol/L Chloride 105 (98-107) mmol/L Carbon Dioxide 26 (22-30) mmol/L BUN 11 (9-20) mg/dL Creatinine 0.79 (0.66-1.25) mg/dL Glucose 135 H (74-99) mg/dL Calcium 9.1 (8.4-10.2) mg/dL AST 40 (17-59) U/L ALT 61 H (4-49) U/L Alkaline Phosphatase 136 H (38-126) U/L Total Protein 6.9 (6.3-8.2) g/dL Albumin 3.8 (3.5-5.0) g/dL Calcium panel 07/14/21 Range/Units 07:36 Calcium 9.1 (8.4-10.2) mg/dL Albumin 3.8 (3.5-5.0) g/dL Pituitary panel 07/14/21 Range/Units 07:36 Sodium 136 L (137-145) mmol/L Potassium 4.2 (3.5-5.1) mmol/L Chloride 105 (98-107) mmol/L Carbon Dioxide 26 (22-30) mmol/L BUN 11 (9-20) mg/dL Creatinine 0.79 (0.66-1.25) mg/dL Glucose 135 H (74-99) mg/dL Calcium 9.1 (8.4-10.2) mg/dL Adrenal panel 07/14/21 Range/Units 07:36 Sodium 136 L (137-145) mmol/L Potassium 4.2 (3.5-5.1) mmol/L Chloride 105 (98-107) mmol/L Carbon Dioxide 26 (22-30) mmol/L BUN 11 (9-20) mg/dL Creatinine 0.79 (0.66-1.25) mg/dL Glucose 135 H (74-99) mg/dL Calcium 9.1 (8.4-10.2) mg/dL Total Bilirubin 0.5 (0.2-1.3) mg/dL AST 40 (17-59) U/L ALT 61 H (4-49) U/L Alkaline Phosphatase 136 H (38-126) U/L Total Protein 6.9 (6.3-8.2) g/dL Albumin 3.8 (3.5-5.0) g/dL Assessment and Plan Assessment: Small bowel obstruction Plan: Patient does have symptoms and clinical picture of a small bowel obstruction he has had these before in the past. And they have resolved spontaneously. This is likely secondary to adhesive disease and the Lomotil that he was on blocking up partially his anastomosis. There does appear to be some equalization of stool around that area. I recommend at this time that we continue with conservative therapy and patient states that he is feeling better and we'll keep him nothing by mouth until he starts having flatus or bowel movement. If he does feel more distention or has more nausea and vomiting I do recommend NG tube at that time. No plans for acute surgical intervention patient is quite high risk secondary to his multiple medical comorbidities. I do however recommend continuing him on the heparin drip until he opens up in case he does deteriorate clinically and requires surgical intervention.
[2021-07-14] MEDS: ACETAMINOPHEN TAB 325 MG TAB PO PRN (20:18)
[2021-07-14] MEDS: levETIRAcetam 500 MG TAB PO SCH (20:18)
[2021-07-14] MEDS: DOFETILIDE 500 MCG CAP PO SCH (23:03)
[2021-07-15] MEDS: SODIUM CHLORIDE 0.9% 1,000 ML IV SCH ×4 (00:25→21:55)
[2021-07-15] MEDS: ACETAMINOPHEN TAB 325 MG TAB PO PRN ×3 (04:28→21:54)
[2021-07-15] MEDS ORDERED: ONDANSETRON 4 MG/2 ML VIAL IVP PRN (05:50)
[2021-07-15] MEDS: DOFETILIDE 500 MCG CAP PO SCH ×2 (08:01→21:55)
[2021-07-15] MEDS: amLODIPine 2.5 MG TAB PO SCH (08:01)
[2021-07-15] MEDS: PANTOPRAZOLE 40 MG TABLET PO SCH (08:01)
[2021-07-15] MEDS: levETIRAcetam 500 MG TAB PO SCH ×2 (08:02→21:55)
[2021-07-15 09:36] LABS: Basophils # (A) 0.02 X 10*3/uL (0.00-0.10); Basophils % (A) 0.4 %; Eosinophils # (A) 0.17 X 10*3/uL (0.04-0.35); Eosinophils % (A) 3.7 %; HCT 32.3 % (39.6-50.0); HGB 10.4 g/dL (13.0-17.0); Immature Grans, Automated 1.1 %; Lymphocytes # (A) 1.42 X 10*3/uL (0.90-5.00); Lymphocytes % (A) 30.6 %; MCH 30.2 pg (27.0-32.0); MCHC 32.2 g/dL (32.0-37.0); MCV 93.9 fL (80.0-97.0); Mean Platelet Volume 9.5 fL (9.5-12.2); Monocytes # (A) 0.66 X 10*3/uL (0.20-1.00); Monocytes % (A) 14.2 %; NRBC Per 100 WBC 0 /100 WBCS (0.0-0.0); Neutrophils # (A) 2.32 X 10*3/uL (1.80-7.70); Platelet Count 139 X 10*3/uL (140-440); RBC 3.44 X 10*6/uL (4.40-5.60); RDW 14.4 % (11.5-14.5); WBC 4.64 X 10*3/uL (4.50-10.00)
[2021-07-15 10:56] LABS: INR 1.01 (0.90-1.11); Prothrombin Time 11.4 sec (9.9-11.9)
[2021-07-15] MEDS: HEPARIN SOD,PORK IN 0.45% NACL 25,000 UNIT in 0.45% NACL 1 250ML.BAG IV SCH (14:03)
--- NOTE | 2021-07-15 14:06 | P.PN ---
Subjective Progress Note Date: 07/15/21 Hospital course Patient is a very pleasant 65-year-old male with a past medical history of colorectal cancer status post bowel resection with colostomy and reversal, hypertension, hyperlipidemia, atrial fibrillation on anticoagulation with Xarelto and planning for scheduled watchman's device to be placed next week secondary to recent hemorrhagic stroke on 05/25/2021. Patient states after hemorrhagic stroke he was taken off of anticoagulant but this was resumed on 07/13/21 to prepare for scheduled procedure. Patient presented to the emergency department today with a chief complaint of abdominal pain, nausea, and vomiting. Patient reports this pain began yesterday and progressively worsened, patient states this morning it was accompanied by persistent nausea and vomiting so he came to the emergency department because he was concerned that he may have an obstruction. Patient states that he was concerned that he may have an obstruction because he has been taking Lomotil chronically for treatment of his diarrhea. Patient denies having any fevers, chills, diaphoresis, chest pain, palpitations, shortness of breath, hematemesis, hematochezia, melena, difficulties with or changes in urinary function, or any other complaints. An abdominal CT with contrast was completed revealing a low-grade or partial distal small bowel obstruction believed to be secondary to adhesions. Lab findings revealed unremarkable CBC, unremarkable BMP, slightly elevated AST at 61 and alkaline phosphatase of 136 with initial lactate of 2.5. urinalysis negative for blood or infection. Patient admitted under our services with consultation to general surgery. Physical exam: Patient seen and fully evaluated at bedside this morning. Patient appeared to be doing well. He reports continued full resolution of abdominal pain/discomfort and has not had any further episodes of nausea or vomiting. Patient reports he is passing flatus but denies having a bowel movement at this time. Bowel sounds present in all 4 quadrants. Patient denies having any other complaints including headache, lightheadedness, chest pain, palpitations, shortness of breath, or experiencing any numbness/tingling/weakness/swelling in his extremities. Morning labs reviewed and stable. We will continue with he juana infusion pending general surgery's clearance, and patient may resume Eliquis at that time. Vital signs reviewed and stable. General: Nontoxic, no distress and appears stated age. Derm: Skin warm and dry, normal coloration for ethnicity. Head: Atraumatic, normocephalic and symmetric. Eyes: EOMs intact, no lid lag, and anicteric sclera Mouth: no lip lesions, mucus membranes moist Cardiovascular: regular rate and rhythm with normal S1S2, no murmur, positive posterior tibial pulses bilaterally, and cap refill < 2 seconds. Lungs: Respirations even, regular, and unlabored on room air. Lungs CTA bilaterally, no rhonchi, no rales, no wheezing, and no accessory muscle usage. Abdominal: soft, slight tenderness upon palpation to right lower quadrant, no guarding, no appreciable organomegaly Ext: ROM intact. No gross muscle atrophy, no edema, no contractures Neuro: Speech clear, face symmetrical and CN II-XII grossly intact with no noted focal neuro deficits Psych: Alert and oriented to person, place, time, and situation. Appropriate and pleasant affect. Assessment and Plan of Care: Small bowel obstruction, clinically the patient appears to be improving History of colorectal cancer status post bowel resection with colostomy and reversal -Patient reports resolution of nausea and vomiting, if nausea or vomiting returns we will need to place NG tube for bowel decompression -Gen. surgery consulted -Patient to be nothing by mouth pending evaluation by general surgery. -Continuous hydration with IV fluids. -Protonix 40 mg daily. -Hold Xarelto and place patient on heparin infusion to prepare for potential surgical procedure Lactic acidosis, resolved -IV bolus followed by generous IV fluid hydration. -Monitor for resolution. Atrial fibrillation on anticoagulation with Xarelto and planning for scheduled watchman's device to be placed next week secondary to recent hemorrhagic stroke on 05/25/2021 -Hold Xarelto in place patient on heparin infusion to prepare for potential surgical procedure. -Initial bolus held secondary to recent history of hemorrhagic stroke patient placed on low-dose heparin infusion. Hypertension -Monitor vital signs and continue daily medication regimen with amlodipine. History of hemorrhagic CVA -Continue daily medication regimen with Keppra 1000 mg every 12 hours to prevent seizure activity. CODE STATUS: Full code DVT prophylaxis: Heparin Discussed with: Patient, patient's son, and RN Anticipated discharge date: Clinical course to determine Anticipated discharge place: home A total of 33 minutes was spent on the care of this complex patient more than 50% of the time was spent in counseling and care coordination. I reviewed the documentation as provided by the PAIGE above, who is the original author of this note. I agree with the documented assessment and plan, with the following changes: None Objective - Vital Signs Vital signs: Vital Signs Temp 98.8 F 07/15/21 10:07 Pulse 68 07/15/21 10:07 Resp 18 07/15/21 10:07 BP 90/52 07/15/21 10:07 Pulse Ox 99 07/15/21 10:07 Intake & Output 07/14/21 07/15/21 07/15/21 18:59 06:59 18:59 Intake Total 1122.199 Balance 1122.199 Weight 72.575 kg Intake: Intake, IV Titration 1122.199 Amount Heparin Sod,Pork in 0.45% 82.199 NaCl 25,000 unit In 0.45 % NaCl 1 250ml.bag @ 12 UNITS/KG/HR 8.709 mls/hr IV .Q24H [facility] Rx#: [id number] Sodium Chloride 0.9% 1, 1040 000 ml @ 130 mls/hr IV . Q7H42M [facility] Rx#:[id number] - Labs CBC & Chem 7: 07/15/21 06:08 07/14/21 07:36 Labs: Abnormal Lab Results - Last 24 Hours (Table) 07/14/21 07/14/21 07/15/21 Range/Units 13:08 23:37 06:08 RBC 3.44 L (4.40-5.60) X 10*6/uL Hgb 10.4 L (13.0-17.0) g/dL Hct 32.3 L (39.6-50.0) % Plt Count 139 L (140-440) X 10*3/uL Immature Gran # 0.05 H (0.00-0.04) X 10*3/uL APTT 21.7 L 66.7 H (22.0-30.0) sec 07/15/21 Range/Units 08:24 RBC (4.40-5.60) X 10*6/uL Hgb (13.0-17.0) g/dL Hct (39.6-50.0) % Plt Count (140-440) X 10*3/uL Immature Gran # (0.00-0.04) X 10*3/uL APTT 54.2 H (22.0-30.0) sec
[2021-07-15] MEDS ORDERED: bisacodyL 10 MG SUPP RECTAL STA (16:23)
--- NOTE | 2021-07-15 16:23 | P.PN ---
Subjective Progress Note Date: 07/15/21 passing flatus. No NV Objective - Vital Signs Vital signs: Vital Signs Temp 98.1 F 07/15/21 14:37 Pulse 70 07/15/21 16:21 Resp 18 07/15/21 14:37 BP 144/84 07/15/21 16:21 Pulse Ox 97 07/15/21 16:21 Intake & Output 07/14/21 07/15/21 07/15/21 18:59 06:59 18:59 Intake Total 1122.199 140.739 Balance 1122.199 140.739 Weight 72.575 kg Intake: Intake, IV Titration 1122.199 140.739 Amount Heparin Sod,Pork in 0.45% 82.199 140.739 NaCl 25,000 unit In 0.45 % NaCl 1 250ml.bag @ 12 UNITS/KG/HR 8.709 mls/hr IV .Q24H [facility] Rx#: [id number] Sodium Chloride 0.9% 1, 1040 000 ml @ 130 mls/hr IV . Q7H42M [facility] Rx#:[id number] - Constitutional General appearance: Present: cooperative - Cardiovascular Rhythm: regular - Gastrointestinal Gastrointestinal Comment(s): s /nt - Psychiatric Psychiatric: Present: A&O x's 3 - Labs CBC & Chem 7: 07/15/21 06:08 07/14/21 07:36 Labs: Abnormal Lab Results - Last 24 Hours (Table) 07/14/21 07/15/21 07/15/21 Range/Units 23:37 06:08 08:24 RBC 3.44 L (4.40-5.60) X 10*6/uL Hgb 10.4 L (13.0-17.0) g/dL Hct 32.3 L (39.6-50.0) % Plt Count 139 L (140-440) X 10*3/uL Immature Gran # 0.05 H (0.00-0.04) X 10*3/uL APTT 66.7 H 54.2 H (22.0-30.0) sec Assessment and Plan Assessment: Small bowel obstruction Plan: Sips of clears as tolerated. Can try suppository and await further bowel function. No plans for surgical intervention
[2021-07-15] MEDS: ARTIFICIAL TEARS-HYPROMELLOSE DROPS 15 ML BTL BOTH EYES PRN (21:55)
[2021-07-16 02:18] VITALS: TEMP 98.4
[2021-07-16] MEDS: ACETAMINOPHEN TAB 325 MG TAB PO PRN (04:43)
[2021-07-16] MEDS: ARTIFICIAL TEARS-HYPROMELLOSE DROPS 15 ML BTL BOTH EYES PRN (04:44)
[2021-07-16] MEDS: SODIUM CHLORIDE 0.9% 1,000 ML IV SCH (04:48)
[2021-07-16 07:48] VITALS: BP 118/68; PULSE 66
[2021-07-16] MEDS: PANTOPRAZOLE 40 MG TABLET PO SCH (07:49)
[2021-07-16] MEDS: DOFETILIDE 500 MCG CAP PO SCH (07:50)
[2021-07-16] MEDS: amLODIPine 2.5 MG TAB PO SCH (07:50)
[2021-07-16] MEDS: levETIRAcetam 500 MG TAB PO SCH (08:40)
[2021-07-16 08:58] LABS: HCT 32.4 % (39.6-50.0); HGB 10.4 g/dL (13.0-17.0); MCH 29.7 pg (27.0-32.0); MCHC 32.1 g/dL (32.0-37.0); MCV 92.6 fL (80.0-97.0); Mean Platelet Volume 9.8 fL (9.5-12.2); NRBC Per 100 WBC 0 /100 WBCS (0.0-0.0); Platelet Count 146 X 10*3/uL (140-440)
[2021-07-16] MEDS ORDERED: RIVAROXABAN 20 MG TAB PO SCH (09:00)
[2021-07-16 09:14] LABS: African American GFR (CKD) 103.7 (60.0-200.0); Albumin 3.5 g/dL (3.8-4.9); Albumin/Globulin Ratio 1.78 (1.60-3.17); Anion Gap 8.1 mmol/L (10.00-18.00); BUN/Creat Ratio 9.26 Ratio (12.00-20.00); Blood Urea Nitrogen 8.2 mg/dL (9.0-27.0); Calcium 8.6 mg/dL (8.7-10.3); Carbon Dioxide 24.2 mmol/L (20.0-27.5); Globulin 1.9 g/dL (1.6-3.3); Magnesium 1.9 mg/dL (1.5-2.4); Non-African American GFR(CKD) 89.4 (60.0-200.0); Potassium 3.8 mmol/L (3.5-5.5); Total Bilirubin 0.3 mg/dL (0.30-1.20); Total Protein 5.4 g/dL (6.2-8.2)
[2021-07-16 09:47] VITALS: RESP 18
--- NOTE | 2021-07-16 15:06 | P.DS ---
Providers Date of admission: 07/14/21 09:37 Expected date of discharge: 07/16/21 Attending physician: Sherry Paul MD Consults: 07/14/21 09:37 Consult Physician Urgent Consulting Provider: Reji Yu Consult Reason/Comments: SBO Do you want consulting provider notified?: Yes Primary care physician: Hernan Cheatham Hospital Course: Discharge Diagnosis: Small bowel obstruction, clinically resolved. Lomotil discontinued. History of colorectal cancer status post bowel resection with colostomy and reversal Lactic acidosis, resolved Atrial fibrillation on anticoagulation with Xarelto and planning for scheduled watchman's device to be placed next week secondary to recent hemorrhagic stroke on 05/25/2021 Hypertension, continue daily medication regimen with amlodipine. History of hemorrhagic CVA, Continue daily medication regimen with Keppra 1000 mg every 12 hours to prevent seizure activity. Hospital Course: Patient is a very pleasant 65-year-old male with a past medical history of colorectal cancer status post bowel resection with colostomy and reversal, hypertension, hyperlipidemia, atrial fibrillation on anticoagulation with Xarelto and planning for scheduled watchman's device to be placed next week secondary to recent hemorrhagic stroke on 05/25/2021. Patient states after hemorrhagic stroke he was taken off of anticoagulant but this was resumed on 07/13/21 to prepare for scheduled procedure. Patient presented to the emergency department today with a chief complaint of abdominal pain, nausea, and vomiting. Patient reports this pain began yesterday and progressively worsened, patient states this morning it was accompanied by persistent nausea and vomiting so he came to the emergency department because he was concerned that he may have an obstruction. Patient states that he was concerned that he may have an obstruction because he has been taking Lomotil chronically for treatment of his diarrhea. Patient denied having any fevers, chills, diaphoresis, chest pain, palpitations, shortness of breath, hematemesis, hematochezia, melena, difficulties with or changes in urinary function, or any other complaints. An abdominal CT with contrast was completed revealing a low-grade or partial distal small bowel obstruction believed to be secondary to adhesions. Lab findings revealed unremarkable CBC, unremarkable BMP, slightly elevated AST at 61 and alkaline phosphatase of 136 with initial lactate of 2.5. urinalysis negative for blood or infection. Patient admitted under our services with consultation to general surgery. Patient was treated conservatively and kept nothing by mouth while we treated with IV hydration. He had full resolution of abdominal pain/discomfort and had no further episodes of nausea or vomiting. Once patient began to pass flatus, he was given a rectal suppository and placed on clear liquid diet. Patient tolerated diet well and status post administration of rectal suppository patient began having bowel movements. Patient continues to have bowel movements and passing flatus without any difficulty. He tolerated increase of diet to full liquid followed by regular. His vital signs remained unremarkable. Patient is medically stable for discharge at this time. Patient being discharged home with [facility] and to follow up with his PCP and general surgery. Patient instructed that Lomotil is discontinued and he should avoid any use of this medication in the future. Physical exam: Patient seen and fully evaluated at bedside this morning. Patient appeared to be doing well. He continues to have full resolution of abdominal pain/discomfort and has not had any further episodes of nausea or vomiting. Patient was given rectal suppository yesterday afternoon and place on clear liquid diet and tolerated well. Patient has had a total of 7 bowel movements overnight and continues to pass flatus without any difficulties. Diet was increased to full liquid and then regular and patient tolerated well. Patient cleared from Gen. surgery and is medically stable for discharge home. Patient instructed that Lomotil is discontinued and he should avoid any use of this medication in the future. Vital signs reviewed and stable. General: Nontoxic, no distress and appears stated age. Derm: Skin warm and dry, normal coloration for ethnicity. Head: Atraumatic, normocephalic and symmetric. Eyes: EOMs intact, no lid lag, and anicteric sclera Mouth: no lip lesions, mucus membranes moist Cardiovascular: regular rate and rhythm with normal S1S2, no murmur, positive posterior tibial pulses bilaterally, and cap refill < 2 seconds. Lungs: Respirations even, regular, and unlabored on room air. Lungs CTA bilaterally, no rhonchi, no rales, no wheezing, and no accessory muscle usage. Abdominal: soft, nontender upon palpation to right lower quadrant, no guarding, no appreciable organomegaly Ext: ROM intact. No gross muscle atrophy, no edema, no contractures Neuro: Speech clear, face symmetrical and CN II-XII grossly intact with no noted focal neuro deficits Psych: Alert and oriented to person, place, time, and situation. Appropriate and pleasant affect. A total of 40 minutes of time were spent preparing this complex discharge summary. Paras Bui NP rendered care for this patient independently, reviewed the findings and plan as documented in the note above. I did not physically speak with or examine the patient on this date. Patient Condition at Discharge: Stable Plan - Discharge Summary Discharge Rx Participant: Yes New Discharge Prescriptions: Continue Rivaroxaban [Xarelto] 20 mg PO DAILY Vit C/E/Zn/Coppr/Lutein/Zeaxan [Preservision Areds 2 Softgel] 1 cap PO BID Omeprazole 40 mg PO DAILY Dofetilide [Tikosyn] 500 mcg PO BID amLODIPine [Norvasc] 2.5 mg PO DAILY Testosterone Cypionate [Depo-Testosterone] 120 mg IM Q14D Carboxymethylcellulose Sodium [Refresh Tears] 1 drop BOTH EYES Q4H PRN PRN Reason: DRY EYES levETIRAcetam [Keppra] 1,000 mg PO Q12HR Potassium Chloride ER [K-Dur 20] 10 meq PO DAILY Discontinued Diphenox-Atrop 2.5-0.025 mg [Lomotil] 1 - 2 tab PO Q6H PRN PRN Reason: Loose Stool Discharge Medication List Rivaroxaban [Xarelto] 20 mg PO DAILY 03/27/18 [History] Vit C/E/Zn/Coppr/Lutein/Zeaxan [Preservision Areds 2 Softgel] 1 cap PO BID 03/27/18 [History] Dofetilide [Tikosyn] 500 mcg PO BID 05/26/21 [History] Omeprazole 40 mg PO DAILY 05/26/21 [History] Testosterone Cypionate [Depo-Testosterone] 120 mg IM Q14D 05/26/21 [History] Carboxymethylcellulose Sodium [Refresh Tears] 1 drop BOTH EYES Q4H PRN 07/14/21 [History] Potassium Chloride ER [K-Dur 20] 10 meq PO DAILY 07/14/21 [History] amLODIPine [Norvasc] 2.5 mg PO DAILY 07/14/21 [History] levETIRAcetam [Keppra] 1,000 mg PO Q12HR 07/14/21 [History] Follow up Appointment(s)/Referral(s): Reji Yu DO [Doctor of Osteopathic Medicine] - 1 Week (office closed at time of discharge) [facility], [NON-STAFF] - ([facility] will call you to schedule your home nursing and speech therapy visits. ) Hernan Cheatham MD [Primary Care Provider] - 1-2 days (Please call the [place] office) Patient Instructions/Handouts: Bowel Obstruction (DC) Activity/Diet/Wound Care/Special Instructions: Activity: As tolerated. Take breaks as needed. Diet: Heart healthy and carb consistent diet. Avoid salts, or foods with hidden salts such as canned or boxed foods and frozen dinners. Extra salt makes your heart work harder and traps the fluid in your body for longer. Special Instructions: Take all of your medications as directed and remember to keep all of your doctor's appointments and follow-up as needed. Lomotil has been discontinued, this medication poses a high risk to obstruction so please dispose up properly and do not use again. Thank you for allowing us to participate in your care, it was truly a pleasure having you for our patient!!! Discharge Disposition: HOME WITH HOME HEALTH SERVICES
== END 2021-07-16 12:34 | disposition home health service (06) | DRG 389 ==
LOC: EC 01:58 → 5NMEDONC 09:37 → 4SSUR 07-15 15:46
PROVIDERS: ADMIT Internal Medicine; ATTEND Internal Medicine
DX: K56.50 Intestinal adhesions [bands], unspecified as to partial versus complete obstruction (principal); E87.2 Acidosis; I10 Essential (primary) hypertension; I48.91 Unspecified atrial fibrillation; E78.5 Hyperlipidemia, unspecified; Z79.01 Long term (current) use of anticoagulants; Z79.899 Other long term (current) drug therapy; Z85.048 Personal history of other malignant neoplasm of rectum, rectosigmoid junction, and anus; Z86.73 Personal history of transient ischemic attack (TIA), and cerebral infarction without residual deficits; Z90.49 Acquired absence of other specified parts of digestive tract; Z88.1 Allergy status to other antibiotic agents; Z87.19 Personal history of other diseases of the digestive system; Z86.718 Personal history of other venous thrombosis and embolism; Z95.5 Presence of coronary angioplasty implant and graft; Z86.79 Personal history of other diseases of the circulatory system
CPT/HCPCS: 36415; 74177; 80053; 81003; 83605; 83690; 83735; 85025; 85027; 85610; 85730; 96361; 96365; 96366; 96375; 99285

== ENCOUNTER 2022-12-19 20:33 | Emergency (ER) | payer MEDICARE, BC ==
[2022-12-19 21:07] VITALS: RESP 18; TEMP 98
[2022-12-19] MEDS ORDERED: KETOROLAC 15 MG/ML 1 ML VIAL IM STA (21:43)
--- NOTE | 2022-12-19 23:15 | CT ---
EXAM: CT Head Without Intravenous Contrast CLINICAL HISTORY: ITS.REASON CT Reason: Trauma TECHNIQUE: Axial computed tomography images of the head/brain without intravenous contrast. CTDI is 49.1 mGy and DLP is 1209 mGy-cm. This CT exam was performed using one or more of the following dose reduction techniques: automated exposure control, adjustment of the mA and/or kV according to patient size, and/or use of iterative reconstruction technique. COMPARISON: 05/26/2021. FINDINGS: Brain: Area of encephalomalacia in the high right parietal area. No hemorrhage. No significant white matter disease. No abnormal extra- axial collection is noted. Ventricles: Unremarkable. No ventriculomegaly. Bones/joints: Calvarium high right parietal craniotomy. No acute fracture. Soft tissues: There is a 2.5 x 1 cm scalp hematoma at the vertex are left of midline. Midline anatomy is unremarkable. Sinuses: Visualized sinuses are unremarkable. Mastoid air cells: Mastoid air cells are well pneumatized. Other findings: Age-related changes. IMPRESSION: 1. Scalp hematoma at the vertex left of midline. 2. Age-related changes. 3. Postsurgical changes and its inflammation high right parietal region including craniotomy changes. 4. No acute intracranial pathology per 5. If there is concern for etiology such as early acute lacunar infarcts, MRI imaging of the brain with diffusion-weighted sequences should be performed.
--- NOTE | 2022-12-19 23:16 | XR ---
EXAM: XR Left Knee, 3 Views CLINICAL HISTORY: ITS.REASON XR Reason: Trauma, pain TECHNIQUE: Three views of the left knee. COMPARISON: No previous studies. FINDINGS: Bones/joints: Mild to moderate tricompartmental osteoarthritic changes about the left knee joint. Moderate left knee joint effusion. No acute fracture or dislocation. Soft tissues: Soft tissues are unremarkable. IMPRESSION: 1. Mild to moderate tricompartmental osteoarthritic changes. 2. Moderate left knee joint effusion appeared 3. MRI imaging of the left joint with provide additional information, as seen clinically necessary.
--- NOTE | 2022-12-19 23:16 | XR ---
EXAM: XR Left Ankle Complete, 3 or More Views CLINICAL HISTORY: ITS.REASON XR Reason: Trauma, pain TECHNIQUE: Frontal, lateral and oblique views of the left ankle. COMPARISON: No previous studies. FINDINGS: Bones/joints: Ankle mortise is preserved. The calcaneus is unremarkable. No acute fracture, dislocation, or destructive process. Soft tissues: Soft tissues are unremarkable. Vasculature: Vascular calcifications noted suggestive of diabetes. IMPRESSION: 1. Vascular calcifications are noted compatible diabetes per 2. If there is concern for cellulitis osteo-myelitis, MRI imaging should be performed 3. No acute fracture or dislocation.
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
[2022-12-19 23:48] VITALS: BP 157/99; PULSE 74
== END 2022-12-19 23:47 | disposition home or self-care (01) ==
LOC: EC 20:33
DX: S00.03XA Contusion of scalp, initial encounter (principal); S80.02XA Contusion of left knee, initial encounter; S90.02XA Contusion of left ankle, initial encounter; I48.91 Unspecified atrial fibrillation; Z86.718 Personal history of other venous thrombosis and embolism; Z88.8 Allergy status to other drugs, medicaments and biological substances; Z79.01 Long term (current) use of anticoagulants; Z79.899 Other long term (current) drug therapy; W01.198A Fall on same level from slipping, tripping and stumbling with subsequent striking against other object, initial encounter
CPT/HCPCS: 73562; 73610; 70450; 99284; 96372; J1885

== ENCOUNTER → 2024-11-01 | Outpatient (CLI) | payer MEDICARE, BC ==
--- NOTE | 2024-11-01 15:14 | US ---
EXAMINATION TYPE: US venous doppler duplex LE LT DATE OF EXAM: 11/01/2024 2:45 PM COMPARISON: NONE CLINICAL INDICATION: Male, 69 years old with history of M79.652 PAIN IN LT THIGH; pt has had pain in lt calf x 3 days, pt states he thinks just a "torn" muscle, hx of DVT rt leg 2013 after chemo treatme nt TECHNIQUE: The lower extremity deep venous system is examined utilizing real time linear array sonog ángel with graded compression, color doppler sonography, and spectral doppler. SIDE PERFORMED: Left FINDINGS: VESSELS IMAGED: Common Femoral Vein Deep Femoral Vein Greater Saphenous Vein * Femoral Vein Popliteal Vein Small Saphenous Vein * Proximal Calf Veins (* superficial vessels) Left Leg: negative for DVT shows patency of the vessels. Spectral waveforms are within normal limits . IMPRESSION: No evidence of deep vein thrombosis of the left lower extremity. [facility], , 11/01/2024 3:12 PM
== END | disposition home or self-care (01) ==
LOC: RADUSWWP 14:08
PROVIDERS: ATTEND Family Medicine
DX: M79.652 Pain in left thigh (principal); Z86.718 Personal history of other venous thrombosis and embolism